=== PATIENT | male | born 1990 | race Hispanic/Latino ===

== ENCOUNTER 2017-10-10 01:51 | Inpatient (IN) | payer BC, MEDICAID ==
[2017-10-10 01:51] VITALS: BMI 24.3
--- NOTE | 2017-10-10 02:22 | ED PDOC ---
Arrival/HPI - General Time Seen by Provider: 10/10/17 01:51 Historian: Patient - History of Present Illness Narrative History of Present Illness (Text): 10/10/17 02:21 27 year old male, whose past medical history includes IVDA (Heroine/cocaine) and alcohol abuse, presents to the emergency department complaining of puncture wound to the right wrist. Patient states he sustained this wound from a nail. There is also some cellulites to the right arm. Patient denies any fever, chills , chest pain, shortness of breath, nausea, vomiting, diarrhea, urinary symptoms , back pain, neck pain, headache, dizziness, suicidal/homicidal Ideation, or any other complaints. PMD: None Symptom Onset: Sudden Symptom Course: Unchanged Activities at Onset: Light Context: Home Past Medical History - Provider Review Nursing Documentation Reviewed: Yes - Cardiac Hx Cardiac Disorders: No Hx Hypertension: No - Pulmonary Hx Tuberculosis: No - Neurological HX Cerebrovascular Accident: No - Hematological/Oncological Hx Cancer: No - Integumentary Hx Dermatological Disorder: Yes (TATTOOS,LEFT ANTECUB AREA WITH OLD TRACK CARDOZA.EDEMA.) - Musculoskeletal/Rheumatological Hx Falls: No - Genitourinary/Gynecological Hx Sexually Transmitted Diseases: No - Psychiatric Hx Substance Use: Yes - Anesthesia Hx Anesthesia: No Hx Anesthesia Reactions: No Hx Malignant Hyperthermia: No - Suicidal Assessment Feels Threatened In Home Enviroment: No Family/Social History - Physician Review Nursing Documentation Reviewed: Yes Family/Social History: No Known Family HX Smoking Status: Current Some Days Smoker Hx Alcohol Use: Yes Hx Substance Use: Yes Allergies/Home Meds Allergies/Adverse Reactions: Allergies No Known Allergies Allergy (Verified 07/15/16 12:17) Home Medications: Home Meds Medication Instructions Recorded Confirmed No Known Home Med [No Known Home 12/05/14 10/10/17 Med] Review of Systems - Physician Review All systems were reviewed & negative as marked: Yes - Review of Systems Constitutional: absent: Fevers, Other (Chills) Respiratory: absent: SOB Cardiovascular: absent: Chest Pain Gastrointestinal: absent: Diarrhea, Nausea, Vomiting Genitourinary Male: absent: Dysuria, Frequency, Hematuria Musculoskeletal: absent: Back Pain, Neck Pain Skin: Cellulitis, Other (puncture wound to the right arm ) Neurological: absent: Headache, Dizziness Physical Exam Vital Signs Reviewed: Yes Vital Signs Temp Pulse Resp BP Pulse Ox 10/10/17 05:04 100.0 F H 82 20 107/60 10/10/17 04:42 100.0 F H 10/10/17 03:46 102 F H 88 20 98 10/10/17 02:20 101.8 F H 98 H 18 97 Temperature: Febrile Blood Pressure: Normal Pulse: Regular Respiratory Rate: Normal Appearance: Positive for: Well-Appearing, Non-Toxic, Comfortable Pain Distress: None Mental Status: Positive for: Alert and Oriented X 3 - Systems Exam Head: Present: Atraumatic, Normocephalic Pupils: Present: PERRL Extroacular Muscles: Present: EOMI Conjunctiva: Present: Normal Mouth: Present: Moist Mucous Membranes Neck: Present: Normal Range of Motion Respiratory/Chest: Present: Clear to Auscultation, Good Air Exchange. No: Respiratory Distress, Accessory Muscle Use Cardiovascular: Present: Regular Rate and Rhythm, Normal S1, S2. No: Murmurs Abdomen: No: Tenderness, Distention, Peritoneal Signs Back: Present: Normal Inspection Upper Extremity: Present: Erythema, Other (Track cardoza to the arms bilaterally. Puncture wound to the right lower aspect of thr wrist. Cellulitis to the right arm (More on the wrist than the hand)). No: Cyanosis, Edema Lower Extremity: Present: Normal Inspection. No: Edema Neurological: Present: GCS=15, CN II-XII Intact, Speech Normal Skin: Present: Warm, Dry, Normal Color. No: Rashes Psychiatric: Present: Alert, Oriented x 3, Normal Insight, Normal Concentration Medical Decision Making ED Course and Treatment: 10/10/17 02:22 Impression: 27 year old male presents complaining of a puncture wound to the right lower aspect of the wrist and cellulites to the right arm. Patient has a past medical history of substance abuse. Plan: -- Labs -- Tylenol, Vancomycin, Zosyn -- Blood Culture -- Wrist, right 3 view x-ray -- Reassess and disposition Prior Visits: Notes and results from previous visits were reviewed. Patient was last seen in the emergency department on 07/15/16 presents found lying outside tonight. Patient was admitted. Progress Notes: 10/10/17 03:12 Case discussed with the medical affairs director and Dr. Rubi Drummond who is aware and agrees with the plan. Accepts patient to hospitalist service. 10/10/17 03:30 Wrist Right 3 View X-ray Impression: As read by me, no foreign body. - Lab Interpretations I have reviewed the lab results: Yes - RAD Interpretation Radiology Orders: 10/10/17 02:25 WRIST, RIGHT 3 VIEWS [RAD] Stat - Medication Orders Current Medication Orders: Acetaminophen (Tylenol 325mg Tab) 650 mg PO Q4H PRN PRN Reason: Fever >100.4 F Sodium Chloride (Sodium Chloride 0.9%) 1,000 mls @ 150 mls/hr IV .Q6H40M OLEKSANDR Vancomycin HCl (Vancomycin 1gm) 1 gm in 250 mls @ 167 mls/hr IVPB Q12H OLEKSANDR PRN Reason: Protocol Piperacillin Sod/Tazobactam Sod (Zosyn 3.375 In Ns 100ml) 100 mls @ 200 mls/hr IVPB Q6H OLEKSANDR PRN Reason: Protocol Stop: 10/10/17 15:29 Ibuprofen (Motrin Tab) 400 mg PO Q6H PRN PRN Reason: Pain, Mild (1-3) Discontinued Medications Acetaminophen (Tylenol 325mg Tab) 650 mg PO STAT STA Stop: 10/10/17 02:26 Last Admin: 10/10/17 03:02 Dose: 650 mg Vancomycin HCl (Vancomycin 1gm) 1 gm in 250 mls @ 167 mls/hr IVPB STAT STA PRN Reason: Protocol Stop: 10/10/17 03:55 Last Admin: 10/10/17 03:02 Dose: 167 mls/hr eMAR Start Stop Document 10/10/17 03:02 (Rec: 10/10/17 03:03 [id number] Intravenous Solution Start Date 10/10/17 Start Time 03:03 Piperacillin Sod/Tazobactam Sod (Zosyn 3.375 In Ns 100ml) 100 mls @ 200 mls/hr IVPB STAT STA PRN Reason: Protocol Stop: 10/10/17 02:55 Last Admin: 10/10/17 03:03 Dose: 200 mls/hr eMAR Start Stop Document 10/10/17 03:03 (Rec: 10/10/17 03:03 [id number] Intravenous Solution Start Date 10/10/17 Start Time 03:03 Sodium Chloride (Sodium Chloride 0.9%) 1,000 mls @ 999 mls/hr IV .Q1H1M STA Stop: 10/10/17 05:50 Last Admin: 10/10/17 06:03 Dose: 999 mls/hr eMAR Start Stop Document 10/10/17 06:03 MV (Rec: 10/10/17 06:03 MV [id number]) Intravenous Solution Start Date 10/10/17 Start Time 06:03 End Date 10/10/17 Tetanus/Reduced Diphtheria/Acell Pertussis (Boostrix Vaccine Inj) 0.5 ml IM .ONCE ONE Stop: 10/10/17 04:21 Last Admin: 10/10/17 04:27 Dose: 0.5 ml MAR Immunization Data Document 10/10/17 04:27 (Rec: 10/10/17 04:27 [facility]-[id number]) Immunization Data Vaccine Information Sheet Given Yes Vaccine Information Sheet Given Date 10/10/17 Immunization Registry Document 10/10/17 04:27 (Rec: 10/10/17 04:27 [facility]-[id number]) Immunization Registry Consent Date 10/10/17 - Scribe Statement The provider has reviewed the documentation as recorded by the Niels Pierce Provider Scribe Attestation: All medical record entries made by the Niels were at my direction and personally dictated by me. I have reviewed the chart and agree that the record accurately reflects my personal performance of the history, physical exam, medical decision making, and the department course for this patient. I have also personally directed, reviewed, and agree with the discharge instructions and disposition. Disposition/Present on Arrival - Present on Arrival Any Indicators Present on Arrival: No History of DVT/PE: No History of Uncontrolled Diabetes: No Urinary Catheter: No History Surgical Site Infection Following: None - Disposition Have Diagnosis and Disposition been Completed?: Yes Diagnosis: Drug abuse, Cellulitis of forearm, right Disposition: HOSPITALIZED Disposition Time: 02:00 Condition: FAIR
[2017-10-10] MEDS ORDERED: Piperacillin/Tazobact 3.375 gm 100 ML IVPB STA (02:26)
[2017-10-10] MEDS ORDERED: Vancomycin 1gm in NS 250ml 1 GM/250 ML BAG IVPB STA (02:26)
[2017-10-10 03:11] LABS: BASO # 0.03 K/mm3 (0.0-2.0); BASO % 0.1 % (0.0-3.0); GRAN # 19.83 (1.4-6.5); GRAN % 83.9 % (50.0-68.0); HEMOGLOBIN 13.5 g/dL (14.0-18.0); LYMPH # 2.5 (1.2-3.4); LYMPH % 10.5 % (22.0-35.0); MEAN CORPUSCULAR HEMOGLOBIN 30.3 pg (25.0-35.0); MONO # 1.3 (0.1-0.6); MONO % 5.5 % (1.0-6.0); RBC 4.46 10^6/uL (3.5-6.1); RED CELL DISTRIBUTION WIDTH 12.8 % (11.5-14.5); WHITE BLOOD COUNT 23.7 10^3/ul (4.5-11.0)
[2017-10-10 03:18] LABS: ALB/GLOB RATIO 1.2 (1.1-1.8); ALBUMIN 4.1 g/dL (3.0-4.8); ALT/SGPT 86 U/L (7-56); AST/SGOT 102 U/L (17-59); BLOOD UREA NITROGEN 18 mg/dL (7-21); CALCIUM 8.3 mg/dL (8.4-10.5); GFR AFRICAN-AMERICAN > 60; GFR NON-AFRICAN AMERICAN > 60
[2017-10-10] MEDS ORDERED: TDAP Vaccine 0.5 mL Syr IM ONE (04:20)
[2017-10-10] MEDS ORDERED: Sodium Chloride 0.9% 1,000 ML IV STA (04:50)
--- NOTE | 2017-10-10 05:56 | CP.PCM.HP ---
History of Present Illness - History of Present Illness History of Present Illness: Internal Medicine H&P for Dr. Maria E Drummond CC: Right wrist infection HPI: 26 yo M with PMH of IVDA (heroine/cocaine), ETOH abuse, and HVC (known, untreated) presents to the ER with his father complaining of right wrist infection. He says that earlier this morning, he was climbing a fence, and a nail went through his wrist and has since gotten progressively redder, more swollen, and more painful. He admits to IVDA use, mostly in his left antecubital fossa, most recently used 2 hours prior to presentation. He denies recent alcohol use. He admits to subjective fevers. He denies chest pain, cough , nausea, vomiting, diarrhea, abdominal pain, shortness of breath, headaches, vision changes, palpitations, focal weakness/numbness. Father is at bedside as well. ROS: 12 point ROS was obtained and was negative except as above. PMH: HCV, known, untreated PSH: Denies FMH: Denies Social: Patient admits to IVDA (cocaine and heroine), patient denies alcohol abuse, patient smokes 1 pack a day of tobacco. 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 Allergy: NKDA Home meds: none Present on Admission - Present on Admission Any Indicators Present on Admission: No Past Patient History - Past Medical History & Family History Past Medical History?: No - Past Social History Smoking Status: Light Smoker < 10 Cigarettes Daily - CARDIAC Hx Cardiac Disorders: No - PULMONARY Hx Respiratory Disorders: No - NEUROLOGICAL Hx Neurological Disorder: No - HEENT Hx HEENT Problems: No - RENAL Hx Chronic Kidney Disease: No - ENDOCRINE/METABOLIC Hx Endocrine Disorders: No - HEMATOLOGICAL/ONCOLOGICAL Hx Blood Disorders: No - INTEGUMENTARY Hx Dermatological Problems: No - MUSCULOSKELETAL/RHEUMATOLOGICAL Hx Musculoskeletal Disorders: No Hx Falls: No - GASTROINTESTINAL Hx Gastrointestinal Disorders: No - GENITOURINARY/GYNECOLOGICAL Hx Genitourinary Disorders: No - PSYCHIATRIC Hx Psychophysiologic Disorder: Yes (SMOKES 1 PPD,IVDU HEROINE,COCAINE USE. ETOH ABUSE,SEVERAL REHAB-RENNY) - SURGICAL HISTORY Hx Surgeries: No - ANESTHESIA Hx Anesthesia: No Hx Anesthesia Reactions: No Hx Malignant Hyperthermia: No Meds Allergies/Adverse Reactions: Allergies Allergy/AdvReac Type Severity Reaction Status Date / Time No Known Allergies Allergy Verified 07/15/16 12:17 Physical Exam - Constitutional Appears: Non-toxic, No Acute Distress - Head Exam Head Exam: ATRAUMATIC, NORMOCEPHALIC - Eye Exam Eye Exam: EOMI, Normal appearance, PERRL. absent: Conjunctival injection Pupil Exam: absent: Miosis, Mydriatic - ENT Exam ENT Exam: Mucous Membranes Moist, Normal Oropharynx - Neck Exam Neck exam: Positive for: Normal Inspection. Negative for: Meningismus - Respiratory Exam Respiratory Exam: Clear to Auscultation Bilateral, NORMAL BREATHING PATTERN. absent: Rales, Rhonchi, Wheezes - Cardiovascular Exam Cardiovascular Exam: RRR, +S1, +S2. absent: Diastolic murmur, Gallop, +S4, Systolic Murmur - GI/Abdominal Exam GI & Abdominal Exam: Soft. absent: Distended, Firm, Guarding, Rigid, Tenderness - Extremities Exam Extremities exam: Negative for: calf tenderness, pedal edema Additional comments: Right wrist with erythema and edema, and 2mm abrasion near palmar-radial aspect. Erythema tracks along medial and ventral aspect of arm to axilla. No axillary lymphadenopathy. - Neurological Exam Neurological exam: Alert, CN II-XII Intact, Oriented x3 Additional comments: 5/5 strength in all four extremitites Normal sensation throughout - Psychiatric Exam Psychiatric exam: Normal Affect, Normal Mood - Skin Skin Exam: Dry, Intact, Normal Color Additional comments: See extremities exam Results - Vital Signs Recent Vital Signs: Last Vital Signs Temp 100.0 F H 10/10/17 05:04 Pulse 82 10/10/17 05:04 Resp 20 10/10/17 05:04 BP 107/60 10/10/17 05:04 Pulse Ox 98 10/10/17 03:46 - Labs Result Diagrams: 10/10/17 05:30 10/10/17 05:30 Labs: Laboratory Results - last 24 hr 10/10/17 10/10/17 02:45 02:45 WBC 23.7 H D RBC 4.46 Hgb 13.5 L Hct 39.7 L MCV 89.0 MCH 30.3 MCHC 34.0 RDW 12.8 Plt Count 256 MPV 9.0 Gran % 83.9 H Lymph % (Auto) 10.5 L [place] % (Auto) 5.5 Eos % (Auto) 0.0 L Baso % (Auto) 0.1 Gran # 19.83 H Lymph # (Auto) 2.5 [place] # (Auto) 1.3 H Eos # (Auto) 0.0 Baso # (Auto) 0.03 Sodium 138 Potassium 4.3 Chloride 98 Carbon Dioxide 28 Anion Gap 16 BUN 18 Creatinine 1.1 Est GFR ( Amer) > 60 Est GFR (Non-Af Amer) > 60 Random Glucose 92 Calcium 8.3 L Total Bilirubin 0.7 AST 102 H ALT 86 H Alkaline Phosphatase 76 Total Protein 7.4 Albumin 4.1 Globulin 3.3 Albumin/Globulin Ratio 1.2 Assessment & Plan - Assessment and Plan (Free Text) Assessment: 27 yo M with history of HCV (known, untreated), IVDA, prior ETOH abuse presents with cellulitis of right arm Cellulitis: -- Right hand XR shows no foreign body -- Ordered Tdap booster -- Continue vanc and zosyn -- Start IVF -- Blood cultures drawn; f/u results -- Ordered UA, UCx, CXR, and procal for further septic workup to r/o other infectious etiologies -- Patient febrile with leukocytosis; continue to monitor vitals and CBC -- Tylenol PRN for fever -- Motrin PRN for pain -- Requested ID consult; appreciate recs History of IVDA and ETOH abuse: -- Monitor for signs of withdrawal DVT Ppx: SCDs Patient seen, discussed, and reviewed with Dr. Maria E Drummond
--- NOTE | 2017-10-10 06:19 | CP.PCM.CON ---
<Сергей Yun - Last Filed: 10/10/17 06:19> Past Patient History - Past Medical History & Family History Past Medical History?: No - Past Social History Smoking Status: Light Smoker < 10 Cigarettes Daily - CARDIAC Hx Cardiac Disorders: No - PULMONARY Hx Respiratory Disorders: No - NEUROLOGICAL Hx Neurological Disorder: No - HEENT Hx HEENT Problems: No - RENAL Hx Chronic Kidney Disease: No - ENDOCRINE/METABOLIC Hx Endocrine Disorders: No - HEMATOLOGICAL/ONCOLOGICAL Hx Blood Disorders: No - INTEGUMENTARY Hx Dermatological Problems: No - MUSCULOSKELETAL/RHEUMATOLOGICAL Hx Musculoskeletal Disorders: No Hx Falls: No - GASTROINTESTINAL Hx Gastrointestinal Disorders: No - GENITOURINARY/GYNECOLOGICAL Hx Genitourinary Disorders: No - PSYCHIATRIC Hx Psychophysiologic Disorder: Yes (SMOKES 1 PPD,IVDU HEROINE,COCAINE USE. ETOH ABUSE,SEVERAL REHAB-RENNY) - SURGICAL HISTORY Hx Surgeries: No - ANESTHESIA Hx Anesthesia: No Hx Anesthesia Reactions: No Hx Malignant Hyperthermia: No Meds Allergies/Adverse Reactions: Allergies Allergy/AdvReac Type Severity Reaction Status Date / Time No Known Allergies Allergy Verified 07/15/16 12:17 - Medications Medications: Current Medications Acetaminophen (Tylenol 325mg Tab) 650 mg PO Q4H PRN PRN Reason: Fever >100.4 F Sodium Chloride (Sodium Chloride 0.9%) 1,000 mls @ 150 mls/hr IV .Q6H40M OLEKSANDR Vancomycin HCl (Vancomycin 1gm) 1 gm in 250 mls @ 167 mls/hr IVPB Q12H OLEKSANDR PRN Reason: Protocol Piperacillin Sod/Tazobactam Sod (Zosyn 3.375 In Ns 100ml) 100 mls @ 200 mls/hr IVPB Q6H OLEKSANDR PRN Reason: Protocol Stop: 10/10/17 15:29 Ibuprofen (Motrin Tab) 400 mg PO Q6H PRN PRN Reason: Pain, Mild (1-3) Results - Vital Signs Recent Vital Signs: Last Vital Signs Temp 100.0 F H 10/10/17 05:04 Pulse 82 10/10/17 05:04 Resp 20 10/10/17 05:04 BP 107/60 10/10/17 05:04 Pulse Ox 98 10/10/17 03:46 - Labs Result Diagrams: 10/10/17 02:45 10/10/17 02:45 Labs: Laboratory Results - last 24 hr 10/10/17 10/10/17 02:45 02:45 WBC 23.7 H D RBC 4.46 Hgb 13.5 L Hct 39.7 L MCV 89.0 MCH 30.3 MCHC 34.0 RDW 12.8 Plt Count 256 MPV 9.0 Gran % 83.9 H Lymph % (Auto) 10.5 L [place] % (Auto) 5.5 Eos % (Auto) 0.0 L Baso % (Auto) 0.1 Gran # 19.83 H Lymph # (Auto) 2.5 [place] # (Auto) 1.3 H Eos # (Auto) 0.0 Baso # (Auto) 0.03 Sodium 138 Potassium 4.3 Chloride 98 Carbon Dioxide 28 Anion Gap 16 BUN 18 Creatinine 1.1 Est GFR ( Amer) > 60 Est GFR (Non-Af Amer) > 60 Random Glucose 92 Calcium 8.3 L Total Bilirubin 0.7 AST 102 H ALT 86 H Alkaline Phosphatase 76 Total Protein 7.4 Albumin 4.1 Globulin 3.3 Albumin/Globulin Ratio 1.2 <Clara Christianson - Last Filed: 10/10/17 07:28> Meds - Medications Medications: Current Medications Acetaminophen (Tylenol 325mg Tab) 650 mg PO Q4H PRN PRN Reason: Fever >100.4 F Sodium Chloride (Sodium Chloride 0.9%) 1,000 mls @ 150 mls/hr IV .Q6H40M OLEKSANDR Vancomycin HCl (Vancomycin 1gm) 1 gm in 250 mls @ 167 mls/hr IVPB Q12H OLEKSANDR PRN Reason: Protocol Piperacillin Sod/Tazobactam Sod (Zosyn 3.375 In Ns 100ml) 100 mls @ 200 mls/hr IVPB Q6H OLEKSANDR PRN Reason: Protocol Stop: 10/10/17 15:29 Ibuprofen (Motrin Tab) 400 mg PO Q6H PRN PRN Reason: Pain, Mild (1-3) Results - Vital Signs Recent Vital Signs: Last Vital Signs Temp 100.0 F H 10/10/17 05:04 Pulse 82 10/10/17 05:04 Resp 20 10/10/17 05:04 BP 107/60 10/10/17 05:04 Pulse Ox 98 10/10/17 03:46 - Labs Result Diagrams: 10/10/17 02:45 10/10/17 05:30 Labs: Laboratory Results - last 24 hr 10/10/17 10/10/17 10/10/17 02:45 02:45 05:30 WBC 23.7 H D RBC 4.46 Hgb 13.5 L Hct 39.7 L MCV 89.0 MCH 30.3 MCHC 34.0 RDW 12.8 Plt Count 256 MPV 9.0 Gran % 83.9 H Lymph % (Auto) 10.5 L [place] % (Auto) 5.5 Eos % (Auto) 0.0 L Baso % (Auto) 0.1 Gran # 19.83 H Lymph # (Auto) 2.5 [place] # (Auto) 1.3 H Eos # (Auto) 0.0 Baso # (Auto) 0.03 Sodium 138 138 Potassium 4.3 3.6 Chloride 98 100 Carbon Dioxide 28 27 Anion Gap 16 14 BUN 18 17 Creatinine 1.1 1.1 Est GFR ( Amer) > 60 > 60 Est GFR (Non-Af Amer) > 60 > 60 Random Glucose 92 206 H Calcium 8.3 L 8.1 L Total Bilirubin 0.7 0.7 AST 102 H 72 H D ALT 86 H 71 H Alkaline Phosphatase 76 60 Total Protein 7.4 6.0 Albumin 4.1 3.2 Globulin 3.3 2.8 Albumin/Globulin Ratio 1.2 1.1
[2017-10-10 06:42] LABS: BASO # 0.02 K/mm3 (0.0-2.0); BASO % 0.1 % (0.0-3.0); GRAN # 16.37 (1.4-6.5); GRAN % 78.9 % (50.0-68.0); HEMOGLOBIN 12.3 g/dL (14.0-18.0); LYMPH # 2.6 (1.2-3.4); LYMPH % 12.4 % (22.0-35.0); MEAN CELL VOLUME 88.7 fl (80.0-105.0); MEAN CORPUSCULAR HEMOGLOBIN 29.6 pg (25.0-35.0); MEAN CORPUSCULAR HGB CONC 33.4 g/dl (31.0-37.0); MEAN PLATELET VOLUME 9.2 fl (7.0-11.0); MONO # 1.8 (0.1-0.6); MONO % 8.6 % (1.0-6.0); RBC 4.15 10^6/uL (3.5-6.1); RED CELL DISTRIBUTION WIDTH 12.9 % (11.5-14.5); WHITE BLOOD COUNT 20.8 10^3/ul (4.5-11.0)
[2017-10-10 06:53] LABS: ALB/GLOB RATIO 1.1 (1.1-1.8); ALBUMIN 3.2 g/dL (3.0-4.8); ALT/SGPT 71 U/L (7-56); AST/SGOT 72 U/L (17-59); BLOOD UREA NITROGEN 17 mg/dL (7-21); CALCIUM 8.1 mg/dL (8.4-10.5); GFR AFRICAN-AMERICAN > 60; GFR NON-AFRICAN AMERICAN > 60
[2017-10-10] MEDS: Sodium Chloride 0.9% 1,000 ML IV SCH ×2 (07:13→16:24)
--- NOTE | 2017-10-10 08:49 | RAD ---
PROCEDURE: Right Wrist Radiographs. HISTORY: r/o fb COMPARISON: None. FINDINGS: BONES: Normal. No fracture. JOINTS: Normal. No dislocation. SOFT TISSUES: No visulaized radiopaque/visualized foreign body. OTHER FINDINGS: None. IMPRESSION: Normal right wrist radiographs.
[2017-10-10] MEDS ORDERED: Piperacillin/Tazobact 3.375 gm 100 ML IVPB SCH (09:00)
--- NOTE | 2017-10-10 09:29 | RAD ---
HISTORY: r/o infiltrate COMPARISON: No prior. FINDINGS: LUNGS: No active pulmonary disease. PLEURA: No significant pleural effusion identified, no pneumothorax apparent. CARDIOVASCULAR: Normal. OSSEOUS STRUCTURES: No significant abnormalities. VISUALIZED UPPER ABDOMEN: Normal. OTHER FINDINGS: None. IMPRESSION: No active disease.
--- NOTE | 2017-10-10 10:41 | CP.PCM.CON ---
<Сергей Yun - Last Filed: 10/10/17 10:29> History of Present Illness - History of Present Illness History of Present Illness: Surgery Consult note. Dr. Poon 27yo M with PMHx of IVDA, HepC here for evaluation of right wrist pain, swelling and redness. Patient admits to IV Heroin use in left antecubital fossa. Patient states that 2 days ago, he was climbing through a window when he scraped the volar aspect of his right wrist on a nail or broken glass. He states that he didn't think much of it at the time. However, over the next day and a half, the area has become more inflammed and progressively red with erythema worsening proximally up the right arm. He does report pain when he flexes or extends his wrist and makes a fist. He last reports IV heroin use 2 hours prior to arrival. He denies any IV heroin use at the right wrist. Denies any similar complaints in the past. Does report subjective fevers and chills that started yesterday. Denies any N/V/D. No Abd pain. No CP/SOB. No urinary complaints. PMHx: HepC, IVDA PSHx: Denies Family Hx: non-contributory Social Hx: Admits to IVDA (heroin), and cocaine use. Current 1/2 pack per day smoker. Denies ETOH use NKDA Review of Systems - Review of Systems All systems: reviewed and no additional remarkable complaints except - Constitutional Constitutional: Chills, Fever - Cardiovascular Cardiovascular: absent: Chest Pain, Diaphoresis, Dyspnea - Respiratory Respiratory: absent: Dyspnea - Gastrointestinal Gastrointestinal: absent: Abdominal Pain, Diarrhea, Nausea, Vomiting - Genitourinary Genitourinary: absent: Dysuria - Musculoskeletal Additional comments: right wrist pain, erythema - Integumentary Additional comments: right wrist erythema Past Patient History - Past Medical History & Family History Past Medical History?: No - Past Social History Smoking Status: Heavy Smoker > 10 Cigarettes Daily Alcohol: None Drugs: Cocaine, Opiates - CARDIAC Hx Cardiac Disorders: No - PULMONARY Hx Respiratory Disorders: No - NEUROLOGICAL Hx Neurological Disorder: No - HEENT Hx HEENT Problems: No - RENAL Hx Chronic Kidney Disease: No - ENDOCRINE/METABOLIC Hx Endocrine Disorders: No - HEMATOLOGICAL/ONCOLOGICAL Hx Blood Disorders: No - INTEGUMENTARY Hx Dermatological Problems: No - MUSCULOSKELETAL/RHEUMATOLOGICAL Hx Musculoskeletal Disorders: No Hx Falls: No - GASTROINTESTINAL Hx Gastrointestinal Disorders: No - GENITOURINARY/GYNECOLOGICAL Hx Genitourinary Disorders: No - PSYCHIATRIC Hx Psychophysiologic Disorder: Yes (SMOKES 1 PPD,IVDU HEROINE,COCAINE USE. ETOH ABUSE,SEVERAL REHAB-RENNY) - SURGICAL HISTORY Hx Surgeries: No - ANESTHESIA Hx Anesthesia: No Hx Anesthesia Reactions: No Hx Malignant Hyperthermia: No Meds Allergies/Adverse Reactions: Allergies Allergy/AdvReac Type Severity Reaction Status Date / Time No Known Allergies Allergy Verified 07/15/16 12:17 - Medications Medications: Current Medications Acetaminophen (Tylenol 325mg Tab) 650 mg PO Q4H PRN PRN Reason: Fever >100.4 F Sodium Chloride (Sodium Chloride 0.9%) 1,000 mls @ 150 mls/hr IV .Q6H40M [facility] Last Admin: 10/10/17 07:13 Dose: 150 mls/hr Vancomycin HCl (Vancomycin 1gm) 1 gm in 250 mls @ 167 mls/hr IVPB Q12H OLEKSANDR PRN Reason: Protocol Cefepime HCl (Maxipime 1gm) 1 gm in 100 mls @ 100 mls/hr IVPB Q8 OLEKSANDR PRN Reason: Protocol Stop: 10/19/17 14:01 Ibuprofen (Motrin Tab) 400 mg PO Q6H PRN PRN Reason: Pain, Mild (1-3) Physical Exam - Constitutional Appears: Non-toxic, No Acute Distress, Unkempt - Head Exam Head Exam: ATRAUMATIC, NORMAL INSPECTION, NORMOCEPHALIC - Eye Exam Eye Exam: EOMI, Normal appearance - ENT Exam ENT Exam: Mucous Membranes Moist - Respiratory Exam Respiratory Exam: NORMAL BREATHING PATTERN. absent: Accessory Muscle Use, Respiratory Distress - Cardiovascular Exam Cardiovascular Exam: RRR. absent: JVD - GI/Abdominal Exam GI & Abdominal Exam: Soft. absent: Distended, Firm, Guarding, Rebound, Tenderness - Extremities Exam Additional comments: right wrist puncture wound with small scab noted. surrounding erythema with streaking up to medial elbow. No fluctuance, no induration, no active drainage Able to flex and extend wrist with moderate discomfort. Able to make fist with moderate discomfort Sensory intact Pulses intact - Neurological Exam Neurological exam: Alert, Oriented x3 Results - Vital Signs Recent Vital Signs: Last Vital Signs Temp 99 F 10/10/17 07:38 Pulse 82 10/10/17 07:38 Resp 20 10/10/17 07:38 BP 107/60 10/10/17 07:38 Pulse Ox 95 10/10/17 07:38 - Labs Result Diagrams: 10/10/17 05:30 10/10/17 05:30 Labs: Laboratory Results - last 24 hr 10/10/17 10/10/17 10/10/17 02:45 02:45 05:30 WBC 23.7 H D 20.8 H RBC 4.46 4.15 Hgb 13.5 L 12.3 L Hct 39.7 L 36.8 L MCV 89.0 88.7 MCH 30.3 29.6 MCHC 34.0 33.4 RDW 12.8 12.9 Plt Count 256 232 MPV 9.0 9.2 Gran % 83.9 H 78.9 H Lymph % (Auto) 10.5 L 12.4 L Coleman % (Auto) 5.5 8.6 H Eos % (Auto) 0.0 L 0.0 L Baso % (Auto) 0.1 0.1 Gran # 19.83 H 16.37 H Lymph # (Auto) 2.5 2.6 Coleman # (Auto) 1.3 H 1.8 H Eos # (Auto) 0.0 0.0 Baso # (Auto) 0.03 0.02 Sodium 138 Potassium 4.3 Chloride 98 Carbon Dioxide 28 Anion Gap 16 BUN 18 Creatinine 1.1 Est GFR ( Amer) > 60 Est GFR (Non-Af Amer) > 60 Random Glucose 92 Calcium 8.3 L Total Bilirubin 0.7 AST 102 H ALT 86 H Alkaline Phosphatase 76 Total Protein 7.4 Albumin 4.1 Globulin 3.3 Albumin/Globulin Ratio 1.2 10/10/17 05:30 WBC RBC Hgb Hct MCV MCH MCHC RDW Plt Count MPV Gran % Lymph % (Auto) [place] % (Auto) Eos % (Auto) Baso % (Auto) Gran # Lymph # (Auto) [place] # (Auto) Eos # (Auto) Baso # (Auto) Sodium 138 Potassium 3.6 Chloride 100 Carbon Dioxide 27 Anion Gap 14 BUN 17 Creatinine 1.1 Est GFR ( Amer) > 60 Est GFR (Non-Af Amer) > 60 Random Glucose 206 H Calcium 8.1 L Total Bilirubin 0.7 AST 72 H D ALT 71 H Alkaline Phosphatase 60 Total Protein 6.0 Albumin 3.2 Globulin 2.8 Albumin/Globulin Ratio 1.1 Assessment & Plan - Assessment and Plan (Free Text) Assessment: 27yo M with right wrist cellulitis Plan: - Continue IV Abx as per ID - Pain management - f/u blood cultures - Recommend evaluation by hand specialist with all further recommendations - No general surgery intervention warranted Further recs as per Dr. Ayah Yun PGY1 surgery pager: [phone] <Nicolas Poon - Last Filed: 10/11/17 19:53> Meds - Medications Medications: Current Medications Acetaminophen (Tylenol 325mg Tab) 650 mg PO Q4H PRN PRN Reason: Fever >100.4 F Calcium Carbonate (Caltrate) 600 mg PO DAILY [facility] Last Admin: 10/11/17 10:23 Dose: 600 mg Heparin Sodium (Porcine) (Heparin) 5,000 units SC Q8 OLEKSANDR PRN Reason: Protocol Last Admin: 10/11/17 13:48 Dose: Not Given Vancomycin HCl (Vancomycin 1gm) 1 gm in 250 mls @ 167 mls/hr IVPB Q12H OLEKSANDR PRN Reason: Protocol Last Admin: 10/11/17 14:33 Dose: 167 mls/hr Cefepime HCl (Maxipime 1gm) 1 gm in 100 mls @ 100 mls/hr IVPB Q8 OLEKSANDR PRN Reason: Protocol Stop: 10/19/17 14:01 Last Admin: 10/11/17 13:47 Dose: 100 mls/hr Lactobacillus Acidophilus (Bacid Acidophilus) 1 cap PO BID [facility] Last Admin: 10/11/17 17:26 Dose: 1 cap Results - Vital Signs Recent Vital Signs: Last Vital Signs Temp 98.3 F 10/11/17 17:45 Pulse 58 L 10/11/17 17:45 Resp 18 10/11/17 17:45 BP 100/57 L 10/11/17 17:45 Pulse Ox 98 10/11/17 17:45 - Labs Result Diagrams: 10/11/17 06:00 10/11/17 06:00 Labs: Laboratory Results - last 24 hr 10/10/17 10/11/17 10/11/17 08:55 06:00 06:00 WBC 12.4 H D RBC 4.02 Hgb 11.8 L Hct 35.9 L MCV 89.3 MCH 29.4 MCHC 32.9 RDW 13.5 Plt Count 197 MPV 9.0 Gran % 66.3 Lymph % (Auto) 23.1 Coleman % (Auto) 9.2 H Eos % (Auto) 1.2 L Baso % (Auto) 0.2 Gran # 8.25 H Lymph # (Auto) 2.9 Coleman # (Auto) 1.1 H Eos # (Auto) 0.2 Baso # (Auto) 0.02 Sodium 139 Potassium 3.9 Chloride 107 Carbon Dioxide 24 Anion Gap 12 BUN 9 Creatinine 0.7 L Est GFR ( Amer) > 60 Est GFR (Non-Af Amer) > 60 Random Glucose 118 H Calcium 7.5 L Phosphorus 2.3 L Magnesium 1.9 Total Bilirubin 0.1 L AST 37 ALT 52 Alkaline Phosphatase 66 Total Protein 5.8 Albumin 2.8 L Globulin 3.0 Albumin/Globulin Ratio 0.9 L Hepatitis A IgM Ab Negative Hep Bs Antigen Negative Hep B Core IgM Ab Negative Hepatitis C Antibody Reactive Attending/Attestation - Attestation I have personally seen and examined this patient.: Yes I have fully participated in the care of the patient.: Yes I have reviewed all pertinent clinical information: Yes Notes (Text): Pt was seen and examined at bedside Agree with above note and assessment Pt with active substance abuse and right wrist cellulitis No clinical evidence of abscess Labs and radiology reviewed Ass: Right wrist cellulitis with active substance abuse Plan: Hand elevation IV antibiotics Hand surgery consult No acute general surgery consult required Plan d.w pt in detail Risk and benefit explained in detail.
[2017-10-10 13:21] LABS: URINE APPEARANCE CLEAR (CLEAR); URINE BILIRUBIN NEGATIVE (NEGATIVE); URINE BLOOD TRACE-INTACT (NEGATIVE); URINE COLOR YELLOW (YELLOW); URINE GLUCOSE (UA) NEGATIVE (NEGATIVE); URINE LEUKOCYTE ESTERASE NEGATIVE Leu/uL (NEGATIVE); URINE PROTEIN NEGATIVE mg/dL (<30 mg/dL); URINE UROBILINOGEN 0.2 E.U./dL (<1 E.U./dL)
[2017-10-10 13:31] LABS: URINE BACTERIA FEW (NEG); URINE WBC 0 - 2 /hpf (0-6)
[2017-10-10] MEDS: Cefepime 1gm in NS 100ml 1 GM/100 ML BAG IVPB SCH ×2 (14:03→21:56)
[2017-10-10] MEDS: Vancomycin 1gm in NS 250ml 1 GM/250 ML BAG IVPB SCH (14:03)
--- NOTE | 2017-10-10 15:57 | CON ---
DATE: 10/10/2017 LOCATION: The patient is seen in room 365 bed 1. CHIEF COMPLAINT: Fever and right arm infection. HISTORY OF PRESENT ILLNESS: This is a 27-year-old male known to me from previous admission, who is an active intravenous drug abuser. She has history of acute kidney injury in the past, polysubstance abuse, who is now admitted with fever and infected arm. He also has a known hepatitis C, did not pursue care for hepatitis C, was admitted through the emergency room. In the emergency room, the patient was seen by Dr. Wicho Farris, who states that the patient is an active intravenous drug abuser, heroin and cocaine, alcohol abuse, admitted with complaining of pain of right arm, right wrist pain and the patient states he has a nail injury to the arm and this morning, he tells me that he was shooting intravenous drugs and he was found have a temperature of 102 in the emergency room and admitted for further care. REVIEW OF SYSTEMS: Reveals fevers and chills and no chest pain or abdominal pain, diarrhea, constipation. No headaches. No blurred vision. No neck pain. PAST MEDICAL HISTORY: Significant for hepatitis C, acute kidney injury, polysubstance abuse, active intravenous drug abuser and heroin and cocaine, alcohol user. PAST SURGICAL HISTORY: The patient denies any past surgical history. SOCIAL HISTORY: He is a long time tobacco user in addition to alcohol and heroin and polysubstance. ALLERGIES: HE HAS NO KNOWN ALLERGIES. PHYSICAL EXAMINATION: VITAL SIGNS: On exam, temperature is 102 and heart rate was 98, respiratory rate of 20 and blood pressure is 107/60. HEENT: Examination of HEENT is unremarkable. NECK: Supple. LUNGS: Have decreased breath sounds. HEART: Normal S1, S2. ABDOMEN: Soft, nontender. EXTREMITIES: Examination of the arm, he has erythema streaking up his right arm all the way to the axillas and lymph node and right axilla. NEUROLOGIC: He was awake and alert. LABORATORY DATA: Laboratory examination reveals the patient's white count to be 23, 000, hemoglobin of 13, platelets of 256. Chemistries reveals BUN of 18, creatinine of 1.1 with a GFR greater than 60. LFTs are elevated and imaging reveals the patient had a chest x-ray. There is no report available and the patient also had a wrist x-ray which reveals normal x-ray of the wrist. Review of the laboratories reveals the patient had an HIV test which was negative on 07/15/2016. ASSESSMENT AND PLAN: A 27-year-old male, hepatitis C positive, history of acute kidney injury, history of polysubstance abuse, active intravenous drug abuser, alcohol user, tobacco user, heroin and cocaine user, who was admitted now with sepsis with a right arm cellulitis, must rule out endocarditis. We will treat the patient with vancomycin and cefepime and pending blood culture results. Recommend an human immunodeficiency virus test and the patient is currently on vancomycin 1 g every 12 hours. We will discontinue the Zosyn and use Maxipime. An human immunodeficiency virus test has been ordered. Blood cultures have been ordered. Drug rehabilitation is recommended and we will follow with you pending initial workup results. Shukri Smiley MD
[2017-10-11] MEDS: Sodium Chloride 0.9% 1,000 ML IV SCH (01:00)
[2017-10-11] MEDS: Vancomycin 1gm in NS 250ml 1 GM/250 ML BAG IVPB SCH ×2 (02:25→14:33)
[2017-10-11] MEDS: Cefepime 1gm in NS 100ml 1 GM/100 ML BAG IVPB SCH ×3 (06:13→21:29)
[2017-10-11 06:37] LABS: BASO # 0.02 K/mm3 (0.0-2.0); BASO % 0.2 % (0.0-3.0); EOS # 0.2 (0.0-0.7); EOS % 1.2 % (1.5-5.0); GRAN # 8.25 (1.4-6.5); GRAN % 66.3 % (50.0-68.0); HEMOGLOBIN 11.8 g/dL (14.0-18.0); LYMPH # 2.9 (1.2-3.4); LYMPH % 23.1 % (22.0-35.0); MEAN CELL VOLUME 89.3 fl (80.0-105.0); MEAN CORPUSCULAR HEMOGLOBIN 29.4 pg (25.0-35.0); MEAN CORPUSCULAR HGB CONC 32.9 g/dl (31.0-37.0); MONO # 1.1 (0.1-0.6); MONO % 9.2 % (1.0-6.0); RBC 4.02 10^6/uL (3.5-6.1); RED CELL DISTRIBUTION WIDTH 13.5 % (11.5-14.5); WHITE BLOOD COUNT 12.4 10^3/ul (4.5-11.0)
[2017-10-11 07:44] LABS: ALB/GLOB RATIO 0.9 (1.1-1.8); ALBUMIN 2.8 g/dL (3.0-4.8); ALT/SGPT 52 U/L (7-56); AST/SGOT 37 U/L (17-59); BLOOD UREA NITROGEN 9 mg/dL (7-21); CALCIUM 7.5 mg/dL (8.4-10.5); GFR AFRICAN-AMERICAN > 60; GFR NON-AFRICAN AMERICAN > 60
[2017-10-11 07:52] LABS: HEPATITIS B SURFACE AG Negative (NEGATIVE)
[2017-10-11 07:57] LABS: HEPATITIS A IGM NEGATIVE (NEGATIVE); HEPATITIS B CORE AB NEGATIVE (NEGATIVE)
[2017-10-11] MEDS ORDERED: Sodium Phosphate 15 MMOLE in Dextrose 5% In Water 250 ML IVPB ONE (09:09)
[2017-10-11 09:20] LABS: HEPATITIS C ANTIBODY REACTIVE (NEGATIVE)
--- NOTE | 2017-10-11 11:17 | CP.PCM.CON ---
Past Patient History - Past Medical History & Family History Past Medical History?: No - Past Social History Smoking Status: Heavy Smoker > 10 Cigarettes Daily Alcohol: None Drugs: Cocaine, Opiates - CARDIAC Hx Cardiac Disorders: No - PULMONARY Hx Respiratory Disorders: No - NEUROLOGICAL Hx Neurological Disorder: No - HEENT Hx HEENT Problems: No - RENAL Hx Chronic Kidney Disease: No - ENDOCRINE/METABOLIC Hx Endocrine Disorders: No - HEMATOLOGICAL/ONCOLOGICAL Hx Blood Disorders: No - INTEGUMENTARY Hx Dermatological Problems: No - MUSCULOSKELETAL/RHEUMATOLOGICAL Hx Musculoskeletal Disorders: No Hx Falls: No - GASTROINTESTINAL Hx Gastrointestinal Disorders: No - GENITOURINARY/GYNECOLOGICAL Hx Genitourinary Disorders: No - PSYCHIATRIC Hx Psychophysiologic Disorder: Yes (SMOKES 1 PPD,IVDU HEROINE,COCAINE USE. ETOH ABUSE,SEVERAL REHAB-RENNY) - SURGICAL HISTORY Hx Surgeries: No - ANESTHESIA Hx Anesthesia: No Hx Anesthesia Reactions: No Hx Malignant Hyperthermia: No Meds Allergies/Adverse Reactions: Allergies Allergy/AdvReac Type Severity Reaction Status Date / Time No Known Allergies Allergy Verified 07/15/16 12:17 - Medications Medications: Current Medications Acetaminophen (Tylenol 325mg Tab) 650 mg PO Q4H PRN PRN Reason: Fever >100.4 F Calcium Carbonate (Caltrate) 600 mg PO DAILY [facility] Last Admin: 10/11/17 10:23 Dose: 600 mg Vancomycin HCl (Vancomycin 1gm) 1 gm in 250 mls @ 167 mls/hr IVPB Q12H OLEKSANDR PRN Reason: Protocol Last Admin: 10/11/17 02:25 Dose: 167 mls/hr Cefepime HCl (Maxipime 1gm) 1 gm in 100 mls @ 100 mls/hr IVPB Q8 OLEKSANDR PRN Reason: Protocol Stop: 10/19/17 14:01 Last Admin: 10/11/17 06:13 Dose: 100 mls/hr Sodium Phosphate 15 mmole/ (Dextrose) 255 mls @ 42.5 mls/hr IVPB ONCE ONE Stop: 10/11/17 15:08 Last Admin: 10/11/17 10:22 Dose: 42.5 mls/hr Results - Vital Signs Recent Vital Signs: Last Vital Signs Temp 98.5 F 10/11/17 07:58 Pulse 69 10/11/17 07:58 Resp 19 10/11/17 07:58 BP 112/70 10/11/17 07:58 Pulse Ox 99 10/11/17 07:58 - Labs Result Diagrams: 10/11/17 06:00 10/11/17 06:00 Labs: Laboratory Results - last 24 hr 10/10/17 10/10/17 10/10/17 05:30 08:55 13:00 WBC RBC Hgb Hct MCV MCH MCHC RDW Plt Count MPV Gran % Lymph % (Auto) [place] % (Auto) Eos % (Auto) Baso % (Auto) Gran # Lymph # (Auto) [place] # (Auto) Eos # (Auto) Baso # (Auto) Sodium Potassium Chloride Carbon Dioxide Anion Gap BUN Creatinine Est GFR ( Amer) Est GFR (Non-Af Amer) Random Glucose Calcium Phosphorus Magnesium Total Bilirubin AST ALT Alkaline Phosphatase Total Protein Albumin Globulin Albumin/Globulin Ratio Procalcitonin 2.25 H Urine Color Yellow Urine Appearance Clear Urine pH 6.0 Ur Specific [place] 1.010 Urine Protein Negative Urine Glucose (UA) Negative Urine Ketones Negative Urine Blood Trace-intact H Urine Nitrate Negative Urine Bilirubin Negative Urine Urobilinogen 0.2 Ur Leukocyte Esterase Negative Urine RBC 1 - 3 Urine WBC 0 - 2 Ur Epithelial Cells None Urine Bacteria Few Hepatitis A IgM Ab Negative Hep Bs Antigen Negative Hep B Core IgM Ab Negative Hepatitis C Antibody Reactive 10/11/17 10/11/17 06:00 06:00 WBC 12.4 H D RBC 4.02 Hgb 11.8 L Hct 35.9 L MCV 89.3 MCH 29.4 MCHC 32.9 RDW 13.5 Plt Count 197 MPV 9.0 Gran % 66.3 Lymph % (Auto) 23.1 [place] % (Auto) 9.2 H Eos % (Auto) 1.2 L Baso % (Auto) 0.2 Gran # 8.25 H Lymph # (Auto) 2.9 [place] # (Auto) 1.1 H Eos # (Auto) 0.2 Baso # (Auto) 0.02 Sodium 139 Potassium 3.9 Chloride 107 Carbon Dioxide 24 Anion Gap 12 BUN 9 Creatinine 0.7 L Est GFR ( Amer) > 60 Est GFR (Non-Af Amer) > 60 Random Glucose 118 H Calcium 7.5 L Phosphorus 2.3 L Magnesium 1.9 Total Bilirubin 0.1 L AST 37 ALT 52 Alkaline Phosphatase 66 Total Protein 5.8 Albumin 2.8 L Globulin 3.0 Albumin/Globulin Ratio 0.9 L Procalcitonin Urine Color Urine Appearance Urine pH Ur Specific [place] Urine Protein Urine Glucose (UA) Urine Ketones Urine Blood Urine Nitrate Urine Bilirubin Urine Urobilinogen Ur Leukocyte Esterase Urine RBC Urine WBC Ur Epithelial Cells Urine Bacteria Hepatitis A IgM Ab Hep Bs Antigen Hep B Core IgM Ab Hepatitis C Antibody
--- NOTE | 2017-10-11 13:04 | CP.PCM.PN ---
<ClarenceSeven can - Last Filed: 10/11/17 12:47> Subjective - Date & Time of Evaluation Date of Evaluation: 10/11/17 Time of Evaluation: 12:47 - Subjective Subjective: Patient seen and examined at bedside. Doing well. Still complaining of some pain in the hand especially with extension of the fingers. No fevers or chills. No other complaints at this time. Objective - Vital Signs/Intake and Output Vital Signs (last 24 hours): Temp Pulse Resp BP Pulse Ox 98.5 F 69 19 112/70 99 10/11/17 07:58 10/11/17 07:58 10/11/17 07:58 10/11/17 07:58 10/11/17 07:58 Intake and Output: 10/11/17 10/11/17 06:59 18:59 Output Total 950 Balance -950 - Medications Medications: Current Medications Acetaminophen (Tylenol 325mg Tab) 650 mg PO Q4H PRN PRN Reason: Fever >100.4 F Calcium Carbonate (Caltrate) 600 mg PO DAILY [facility] Last Admin: 10/11/17 10:23 Dose: 600 mg Vancomycin HCl (Vancomycin 1gm) 1 gm in 250 mls @ 167 mls/hr IVPB Q12H OLEKSANDR PRN Reason: Protocol Last Admin: 10/11/17 02:25 Dose: 167 mls/hr Cefepime HCl (Maxipime 1gm) 1 gm in 100 mls @ 100 mls/hr IVPB Q8 OLEKSANDR PRN Reason: Protocol Stop: 10/19/17 14:01 Last Admin: 10/11/17 06:13 Dose: 100 mls/hr Sodium Phosphate 15 mmole/ (Dextrose) 255 mls @ 42.5 mls/hr IVPB ONCE ONE Stop: 10/11/17 15:08 Last Admin: 10/11/17 10:22 Dose: 42.5 mls/hr - Labs Labs: 10/11/17 06:00 10/11/17 06:00 - Additional Findings Additional findings: - Constitutional Appears: Non-toxic, No Acute Distress - Head Exam Head Exam: ATRAUMATIC, NORMOCEPHALIC - Eye Exam Eye Exam: EOMI, Normal appearance, PERRL. absent: Conjunctival injection Pupil Exam: absent: Miosis, Mydriatic - ENT Exam ENT Exam: Mucous Membranes Moist, Normal Oropharynx - Neck Exam Neck exam: Positive for: Normal Inspection. Negative for: Meningismus - Respiratory Exam Respiratory Exam: Clear to Auscultation Bilateral, NORMAL BREATHING PATTERN. absent: Rales, Rhonchi, Wheezes - Cardiovascular Exam Cardiovascular Exam: RRR, +S1, +S2. absent: Diastolic murmur, Gallop, +S4, Systolic Murmur - GI/Abdominal Exam GI & Abdominal Exam: Soft. absent: Distended, Firm, Guarding, Rigid, Tenderness - Extremities Exam Extremities exam: Negative for: calf tenderness, pedal edema Additional comments: Right wrist with erythema and edema, and 2mm abrasion near palmar-radial aspect. Increased swelling and pain on passive flexion and extension of the fingers. Pulses are present and equal bilaterally. No pallor present. - Neurological Exam Neurological exam: Alert, CN II-XII Intact, Oriented x3 Additional comments: 5/5 strength in all four extremitites Normal sensation throughout - Psychiatric Exam Psychiatric exam: Normal Affect, Normal Mood - Skin Skin Exam: Dry, Intact, Normal Color Additional comments: See extremities exam Assessment and Plan (1) Cellulitis of forearm, right Assessment & Plan: General Surgery ([facility]) - continue Abx, no intervention needed at this time ID ([facility]) Hand Surgery ([facility]) TTE to eval for endocarditis Vanco trough tomorrow morning Cefepime and vanco Blood cultures negative thus far Status: Acute (2) Drug abuse Assessment & Plan: Counselled will monitor for signs of w/d Status: Acute (3) Hepatitis C infection Assessment & Plan: Will need to be evaluated at GI clinic for treatment. Will need to go to [facility] for treatment. I will provide this information for him at discharge Status: Chronic (4) Prophylactic measure Assessment & Plan: Heparin Lactobacillus SCD No GI PPX indicated at this time Status: Acute <Satish Drummond B - Last Filed: 10/11/17 15:15> Objective - Vital Signs/Intake and Output Vital Signs (last 24 hours): Temp Pulse Resp BP Pulse Ox 98.5 F 69 19 112/70 99 10/11/17 07:58 10/11/17 07:58 10/11/17 07:58 10/11/17 07:58 10/11/17 07:58 Intake and Output: 10/11/17 10/11/17 06:59 18:59 Intake Total 840 Output Total 950 900 Balance -950 -60 - Medications Medications: Current Medications Acetaminophen (Tylenol 325mg Tab) 650 mg PO Q4H PRN PRN Reason: Fever >100.4 F Calcium Carbonate (Caltrate) 600 mg PO DAILY [facility] Last Admin: 10/11/17 10:23 Dose: 600 mg Heparin Sodium (Porcine) (Heparin) 5,000 units SC Q8 OLEKSANDR PRN Reason: Protocol Last Admin: 10/11/17 13:48 Dose: Not Given Vancomycin HCl (Vancomycin 1gm) 1 gm in 250 mls @ 167 mls/hr IVPB Q12H OLEKSANDR PRN Reason: Protocol Last Admin: 10/11/17 02:25 Dose: 167 mls/hr Cefepime HCl (Maxipime 1gm) 1 gm in 100 mls @ 100 mls/hr IVPB Q8 OLEKSANDR PRN Reason: Protocol Stop: 10/19/17 14:01 Last Admin: 10/11/17 13:47 Dose: 100 mls/hr Sodium Phosphate 15 mmole/ (Dextrose) 255 mls @ 42.5 mls/hr IVPB ONCE ONE Stop: 10/11/17 15:08 Last Admin: 10/11/17 10:22 Dose: 42.5 mls/hr Lactobacillus Acidophilus (Bacid Acidophilus) 1 cap PO BID OLEKSANDR - Labs Labs: 10/11/17 06:00 10/11/17 06:00 Attending/Attestation - Attestation I have personally seen and examined this patient.: Yes I have fully participated in the care of the patient.: Yes I have reviewed all pertinent clinical information, including history, physical exam and plan: Yes Notes (Text): I have seen and examined the patient at bedside. Agree with the above note with the following additions/ exceptions: Briefly this is 27 year old male with history of IVDA, known and untreated Hep C, cocaine abuse, heroin use and alcohol abuse who came for evaluation of cellulitis of right wrist and fore arm. Cellulitis is improving. Continue cefepime and vanco. Follow up on blood cultures. Will order TTE. Surgery consult appreciated. No intervention recommended. Advised pateint to follow up with sign wirer for HCV treatment. Counselling provided regarding polysubstance abuse. Will monitor for signs and symptoms of withdrawal. Upon discharge patient will follow up with PMD of choice.
[2017-10-11] MEDS: Lactobacillus Acidophilus 500 MU Cap PO SCH (17:26)
--- NOTE | 2017-10-11 17:41 | CP.PCM.PN ---
Subjective - Date & Time of Evaluation Date of Evaluation: 10/11/17 Time of Evaluation: 10:25 - Subjective Subjective: Right arm is feeling better but still with some pain, no fevers, no nausea or diarrhea. Objective - Vital Signs/Intake and Output Vital Signs (last 24 hours): Temp Pulse Resp BP Pulse Ox 98.5 F 69 19 112/70 99 10/11/17 07:58 10/11/17 07:58 10/11/17 07:58 10/11/17 07:58 10/11/17 07:58 Intake and Output: 10/11/17 10/11/17 06:59 18:59 Output Total 950 Balance -950 - Medications Medications: Current Medications Acetaminophen (Tylenol 325mg Tab) 650 mg PO Q4H PRN PRN Reason: Fever >100.4 F Sodium Chloride (Sodium Chloride 0.9%) 1,000 mls @ 150 mls/hr IV .Q6H40M [facility] Last Admin: 10/11/17 01:00 Dose: 150 mls/hr Vancomycin HCl (Vancomycin 1gm) 1 gm in 250 mls @ 167 mls/hr IVPB Q12H OLEKSANDR PRN Reason: Protocol Last Admin: 10/11/17 02:25 Dose: 167 mls/hr Cefepime HCl (Maxipime 1gm) 1 gm in 100 mls @ 100 mls/hr IVPB Q8 OLEKSANDR PRN Reason: Protocol Stop: 10/19/17 14:01 Last Admin: 10/11/17 06:13 Dose: 100 mls/hr Ibuprofen (Motrin Tab) 400 mg PO Q6H PRN PRN Reason: Pain, Mild (1-3) - Labs Labs: 10/11/17 06:00 10/11/17 06:00 - Constitutional Appears: Chronically Ill - Head Exam Head Exam: NORMAL INSPECTION - ENT Exam ENT Exam: Mucous Membranes Moist - Neck Exam Neck Exam: absent: Meningismus - Respiratory Exam Respiratory Exam: Decreased Breath Sounds - Cardiovascular Exam Cardiovascular Exam: +S1, +S2 - GI/Abdominal Exam GI & Abdominal Exam: Soft. absent: Tenderness - Extremities Exam Additional comments: right arm with streaking up to axillary area, no fluctuance, decreasing erythema , decreasing tenderness Assessment and Plan - Assessment and Plan (Free Text) Plan: Assessment sepsis due to right arm cellulitis, slowly improving HCV antibody positive history of systemic Inflammatory Response Syndrome with marked leukocytosis from vascular congestion S/P acute renal failure history of rhabdomyolysis polysubstance abuse Plan continue Vancomycin and Cefepime day 2; blood and urine cultures are negative - if patient continues to improve, may be able to switch to PO antibiotics tomorrow follow up HCV RNA PCR follow up rapid HIV test will continue to monitor clinically
[2017-10-12] MEDS: Vancomycin 1gm in NS 250ml 1 GM/250 ML BAG IVPB SCH ×2 (02:09→17:26)
[2017-10-12] MEDS: Cefepime 1gm in NS 100ml 1 GM/100 ML BAG IVPB SCH ×3 (05:34→21:44)
[2017-10-12 06:50] LABS: BASO # 0.05 K/mm3 (0.0-2.0); BASO % 0.6 % (0.0-3.0); EOS # 0.2 (0.0-0.7); EOS % 2.2 % (1.5-5.0); GRAN # 4.3 (1.4-6.5); GRAN % 52.7 % (50.0-68.0); HEMOGLOBIN 12.2 g/dL (14.0-18.0); LYMPH # 2.8 (1.2-3.4); LYMPH % 34.4 % (22.0-35.0); MEAN CELL VOLUME 90.4 fl (80.0-105.0); MEAN CORPUSCULAR HEMOGLOBIN 29.9 pg (25.0-35.0); MEAN CORPUSCULAR HGB CONC 33.1 g/dl (31.0-37.0); MEAN PLATELET VOLUME 9.5 fl (7.0-11.0); MONO # 0.8 (0.1-0.6); MONO % 10.1 % (1.0-6.0); RBC 4.08 10^6/uL (3.5-6.1); RED CELL DISTRIBUTION WIDTH 13.7 % (11.5-14.5); WHITE BLOOD COUNT 8.2 10^3/ul (4.5-11.0)
[2017-10-12 07:14] LABS: ALB/GLOB RATIO 0.9 (1.1-1.8); ALT/SGPT 53 U/L (7-56); AST/SGOT 28 U/L (17-59); BLOOD UREA NITROGEN 12 mg/dL (7-21); CALCIUM 8.3 mg/dL (8.4-10.5); GFR AFRICAN-AMERICAN > 60; GFR NON-AFRICAN AMERICAN > 60
[2017-10-12] MEDS: Lactobacillus Acidophilus 500 MU Cap PO SCH ×2 (09:57→17:27)
--- NOTE | 2017-10-12 10:26 | CARD ---
APPROVED REPORT EKG Measurement Heart [id number] <Conclusion> Sinus bradycardia Otherwise normal ECG
--- NOTE | 2017-10-12 11:40 | CP.PCM.PN ---
<Lindsay Garcia - Last Filed: 10/12/17 13:27> Subjective - Date & Time of Evaluation Date of Evaluation: 10/12/17 Time of Evaluation: 07:35 - Subjective Subjective: IM progress note for Dr. Manny Garcia, PGY-1 Pt S & E at bedside at 0735 Pt reports continued pain/swelling of Right wrist. States that redness has gotten better. Denies N & V, F & C, chest pain, SOB, other complaints. Objective - Vital Signs/Intake and Output Vital Signs (last 24 hours): Temp Pulse Resp BP Pulse Ox 97.5 F L 43 L 16 104/60 100 10/12/17 08:03 10/12/17 08:03 10/12/17 08:03 10/12/17 08:03 10/12/17 08:03 Intake and Output: 10/12/17 10/12/17 06:59 18:59 Intake Total 1020 Balance 1020 - Medications Medications: Current Medications Acetaminophen (Tylenol 325mg Tab) 650 mg PO Q4H PRN PRN Reason: Fever >100.4 F Calcium Carbonate (Caltrate) 600 mg PO DAILY [facility] Last Admin: 10/12/17 09:57 Dose: 600 mg Heparin Sodium (Porcine) (Heparin) 5,000 units SC Q8 OELKSANDR PRN Reason: Protocol Last Admin: 10/12/17 05:35 Dose: Not Given Vancomycin HCl (Vancomycin 1gm) 1 gm in 250 mls @ 167 mls/hr IVPB Q12H OLEKSANDR PRN Reason: Protocol Last Admin: 10/12/17 02:09 Dose: 167 mls/hr Cefepime HCl (Maxipime 1gm) 1 gm in 100 mls @ 100 mls/hr IVPB Q8 OLEKSANDR PRN Reason: Protocol Stop: 10/19/17 14:01 Last Admin: 10/12/17 05:34 Dose: 100 mls/hr Ibuprofen (Motrin Tab) 400 mg PO Q6H PRN PRN Reason: Pain, moderate (4-7) Lactobacillus Acidophilus (Bacid Acidophilus) 1 cap PO BID [facility] Last Admin: 10/12/17 09:57 Dose: 1 cap - Labs Labs: 10/12/17 06:00 10/12/17 06:00 - Constitutional Appears: Non-toxic, No Acute Distress - Head Exam Head Exam: ATRAUMATIC, NORMAL INSPECTION, NORMOCEPHALIC - Eye Exam Eye Exam: EOMI, Normal appearance - ENT Exam ENT Exam: Mucous Membranes Moist, Normal Exam - Neck Exam Neck Exam: Full ROM, Normal Inspection - Respiratory Exam Respiratory Exam: Clear to Ausculation Bilateral, NORMAL BREATHING PATTERN - Cardiovascular Exam Cardiovascular Exam: REGULAR RHYTHM, +S1, +S2 - GI/Abdominal Exam GI & Abdominal Exam: Soft, Normal Bowel Sounds. absent: Tenderness - Extremities Exam Extremities Exam: Tenderness. absent: Normal Inspection Additional comments: right wrist with slight erythema, swelling, decreased ROM in Flexion/extension. Can flex fingers, make a fist. Erythema of upper arm resolved. - Neurological Exam Neurological Exam: Alert, Awake, Oriented x3 - Psychiatric Exam Psychiatric exam: Normal Affect, Normal Mood - Skin Skin Exam: Dry, Erythema (slight, at wrist with small scabs in place), Intact, Normal Color, Warm Assessment and Plan - Assessment and Plan (Free Text) Assessment: Sepsis 2/2 Right arm cellulitis-improving Plan: Sepsis 2/2 Right arm cellulitis-improving Afebrile over 24H Leukocytosis resolved - 8.2 from 12.4 Hep C ab pos FU HCV RNA PCR FU TTE Blood cx neg Urine cx neg Tylenol HIV neg Surgery following- refer to hand specialist, Abx ID following- vanc, Cefepime day [address] on remote tele EKG w/sinus bradycardia Echo w/EF 65%, Thickened arotic, mitral, tricuspide, and pulmonary valve, trace MR, mild TR, very minute echogenic mobile structure attached to aortic valve leaflets. Possible fibroelastosis, but can't R/O vegetation. Suggest JORGE FU JORGE Substance abuse Monitor for withdrawal Encourage cessation Hep C Recommend FU outpatient with GI clinic for treatment w/UMDNJ upon d/c GI/DVT ppx Heparin Lactobacillus SCD No GI ppx indicated at this time Dispo PT Remote tele DW attending Radha, PGY-1 <Satish Drummond B - Last Filed: 10/12/17 14:13> Objective - Vital Signs/Intake and Output Vital Signs (last 24 hours): Temp Pulse Resp BP Pulse Ox 97.5 F L 43 L 16 104/60 100 10/12/17 08:03 10/12/17 08:03 10/12/17 08:03 10/12/17 08:03 10/12/17 08:03 Intake and Output: 10/12/17 10/12/17 06:59 18:59 Intake Total 1020 Balance 1020 - Medications Medications: Current Medications Acetaminophen (Tylenol 325mg Tab) 650 mg PO Q4H PRN PRN Reason: Fever >100.4 F Calcium Carbonate (Caltrate) 600 mg PO DAILY [facility] Last Admin: 10/12/17 09:57 Dose: 600 mg Heparin Sodium (Porcine) (Heparin) 5,000 units SC Q8 OLEKSANDR PRN Reason: Protocol Last Admin: 10/12/17 14:00 Dose: Not Given Vancomycin HCl (Vancomycin 1gm) 1 gm in 250 mls @ 167 mls/hr IVPB Q12H OLEKSANDR PRN Reason: Protocol Last Admin: 10/12/17 02:09 Dose: 167 mls/hr Cefepime HCl (Maxipime 1gm) 1 gm in 100 mls @ 100 mls/hr IVPB Q8 OLEKSANDR PRN Reason: Protocol Stop: 10/19/17 14:01 Last Admin: 10/12/17 14:00 Dose: 100 mls/hr Ibuprofen (Motrin Tab) 400 mg PO Q6H PRN PRN Reason: Pain, moderate (4-7) Lactobacillus Acidophilus (Bacid Acidophilus) 1 cap PO BID [facility] Last Admin: 10/12/17 09:57 Dose: 1 cap - Labs Labs: 10/12/17 06:00 10/12/17 06:00 Attending/Attestation - Attestation I have personally seen and examined this patient.: Yes I have fully participated in the care of the patient.: Yes I have reviewed all pertinent clinical information, including history, physical exam and plan: Yes Notes (Text): I have seen and examined the patient at bedside. Agree with the above note with the following additions/ exceptions: Briefly this is 27 year old male with history of IVDA, known and untreated Hep C, cocaine abuse, heroin use and alcohol abuse who came for evaluation of cellulitis of right wrist and fore arm. Cellulitis is improving. Surgery consult appreciated and they recommended no intervention. Hand specialist is not available. Will refer for outpatient evaluation. Continue cefepime and vanco. Blood cultures are negative so far. TTE revealed thickened AV, MV, TV and PV. Also very minute echogenic mobile structure was seen attached to AV leaflets. Cardiology consult requested for JORGE. Patient also was noted to have bradycardia while having an echo. Will check TFTs and start tele monitoring. Advised patient to follow up with [facility] for HCV treatment. Counselling provided regarding polysubstance abuse. Will monitor for signs and symptoms of withdrawal. Upon discharge patient will follow up with PMD of choice.
--- NOTE | 2017-10-12 12:26 | CARD ---
APPROVED REPORT EXAM: Two-dimensional and M-mode echocardiogram with Doppler and color Doppler. INDICATION Infection:Rule out subacute bacterial endocarditis 2D DIMENSIONS Left Atrium (2D)3.8 (1.6-4.0cm)IVSd1.2 (0.7-1.1cm) LVDd5.4 (3.9-5.9cm)PWd1.1 (0.7-1.1cm) LVDs3.4 (2.5-4.0cm)FS (%) 37.7 % LVEF (%)67.3 (>50%) M-Mode DIMENSIONS Aortic Root2.70 (2.2-3.7cm)Aortic Cusp Exc.2.20 (1.5-2.0cm) Aortic Valve AoV Peak Cfgjjaoq678.0cm/Ang[place] Peak GR.9mmHg Mitral Valve MV E Wuibphai980.0cm/sMV A Ksyfiiyp20.2cm/sE/A ratio2.7 TDI E/Lateral E'0.0E/Medial E'0.0 Tricuspid Valve TR Peak Mobxxozm002ki/sRAP [id number] Peak Gr.19mmHg [id number] LEFT VENTRICLE The left ventricle is normal size. There is normal left ventricular wall thickness. The left ventricular function is normal.EF-65% There is normal LV segmental wall motion. The left ventricular diastolic function is normal. No left ventricle thrombus noted on this study. There is no ventricular septal defect visualized. There is no left ventricular aneurysm. There is no mass noted in the left ventricle. RIGHT VENTRICLE The right ventricle is normal size. There is normal right ventricular wall thickness. The right ventricular systolic function is normal. ATRIA The left atrium size is normal. The right atrium size is normal. The interatrial septum is intact with no evidence for an atrial septal defect. AORTIC VALVE The aortic valve is moderately thickened. The aortic valve is mildly sclerotic., No aortic regurgitation is present. There is no aortic valvular stenosis. Very minute echogenic Mobobile structure attached to Aortic Valve leaflets, Possible Fibroelastosibut can not R/o Vegetation, though unlikely, NO AR, Suggest JORGE. MITRAL VALVE The mitral valve is thickened but opens well. Mitral regurgitation is trace. There is no mitral valve stenosis. There is no evidence of mitral valve prolapse. TRICUSPID VALVE The tricuspid valve leaflets are thickened , but open well. There is trace tricuspid regurgitation.RVSP-29 mmof Hg. There is no tricuspid valve stenosis. There is no tricuspid valve prolapse or vegetation. PULMONIC VALVE The pulmonic valve is mildly thickened. There is no pulmonic valvular regurgitation. There is no pulmonic valvular stenosis. GREAT VESSELS The aortic root is normal in size. The ascending aorta is normal in size. The pulmonary artery is normal. The IVC is normal in size and collapses >50% with inspiration. PERICARDIAL EFFUSION There is no pleural effusion. There is no pericardial effusion. <Conclusion> Npormal chamber Size. Ef-65% Thickened Aortic, Mitral, tricuspid and Pulmonary valve. trace MR Mild TR, RVSP-29 mmof Hg. Very minute echogenic Mobobile structure attached to Aortic Valve leaflets, Possible Fibroelastosi but can not R/o Vegetation, though unlikely, NO AR, Suggest JORGE.Corelate clinically.
[2017-10-12 15:19] LABS: FREE T4 1.08 ng/dL (0.78-2.19)
--- NOTE | 2017-10-12 20:37 | PN ---
DATE: 10/12/2017 SUBJECTIVE: The patient is in bed, in no acute distress, nontoxic. The patient was seen earlier this morning in room 368. PHYSICAL EXAMINATION: VITAL SIGNS: Temperature is 97 and he has been afebrile now for almost 48 hours with a blood pressure of 100/50, respiratory rate of 18, heart rate of 50. HEENT: Unremarkable. NECK: Supple. LUNGS: Decreased breath sounds. HEART: Normal S1, S2. ABDOMEN: Soft, nontender. LABORATORY EXAMINATION: Reveals a white count of 8.2, hemoglobin of 12, and platelets of 214. Vancomycin trough is less than 5. HIV is negative. Hepatitis C is positive. Microbiology reveals the blood cultures are negative. An echocardiogram is noted. Very very minute echogenic mobile structure attached to the aortic valve. Cardiology recommended JORGE. ASSESSMENT AND PLAN: This is a 27-year-old white male seen earlier today in 368, bed 2, who was admitted with sepsis, who is an active intravenous drug abuser with right arm cellulitis have just resolved; however, the right hand still has significant erythema, who has had hepatitis C and a questionable valve vegetation. Though the blood cultures are negative, the echo cannot rule out a mobile vegetation, must rule out underlying endocarditis. We will continue the current regimen with vancomycin and cefepime, and waiting for JORGE results and resolution of the right hand cellulitis. He has full function of all his fingers. He is able to extend and flex the fingers, although the hand does have some edema. We will follow closely with you. May consider imaging of the right hand whether it is there on CAT scan. We will follow with you and repeat a vancomycin trough level. The patient received vancomycin at hours for tomorrow. We will make further recommendations depending on JORGE results and final culture results and clinical resolution of the hand. We will also order a CT of the right hand. Shukri Smiley MD
[2017-10-13] MEDS: Vancomycin 1gm in NS 250ml 1 GM/250 ML BAG IVPB SCH ×2 (02:16→15:42)
--- NOTE | 2017-10-13 04:47 | CON ---
DATE: 10/12/2017 CARDIOLOGY CONSULTATION REASON FOR CONSULTATION: Rule out bacterial endocarditis. HISTORY OF PRESENT ILLNESS: Patient is a 27-year-old male who is an active intravenous drug abuser. He presented because of right hand cellulitis what sounded to be right axillary lymphadenitis following intravenous drug abuse. Patient denies any prior infection related to his drug abuse and any prior bacterial endocarditis as far as he reports. Patient denies any chest pain, dizziness. Patient was unaware of fever; however, his on admission was 102. SOCIAL HISTORY: Patient is an active intravenous drug abuser. He denies sharing needles. MEDICATIONS: Lactobacillus acidophilus one tablet twice a day, subcutaneous heparin 5000 units every 8 hours, Maxipime 1 g intravenously every 8 hours, vancomycin 1 g intravenously every 12 hours. REVIEW OF SYSTEMS: No vomiting. No diarrhea. No dizziness or syncope. PHYSICAL EXAMINATION: GENERAL: Patient is a young male who does not appear to be in acute distress. VITAL SIGNS: Blood pressure 104/60, heart rate 43, temperature 97.5, respirations 16. HEENT: Normocephalic. CHEST: Clear. HEART: S1, S2 regular. ABDOMEN: Soft. EXTREMITIES: No pedal edema. Right hand cellulitis. LABORATORY DATA: Hemoglobin and hematocrit 12.2 and 36.9. White count and platelet count today are within normal limits. White count on admission was 23.7. Today's SMA-7 is within normal limits except for chloride of 111 and creatinine 0.7. TSH and free T4 level are within normal limits. Hepatitis A, B serologies are negative. Hepatitis C antibody is reactive. HIV 1 and 2 antigen antibody fourth generation is nonreactive. EKG revealed sinus bradycardia at the rate of 51, otherwise unremarkable. Echocardiographic study revealed normal chamber size, normal ejection fraction; very minute echogenic mobile structure attached to the aortic valve leaflets, possible fibroelastosis, but cannot rule out vegetation, suggest JORGE, correlate clinically. Blood culture is negative after 48 hours. ASSESSMENT: 1. Right hand cellulitis. 2. Active intravenous drug abuser. 3. Rule out aortic vegetation. RECOMMENDATIONS: Continue current subcutaneous heparin, IV Maxipime, IV vancomycin and oral Lactobacillus. The patient was offered transesophageal echo, however, he was very upset with the fact that he was expected to go home today. I discussed the case with Dr. Drummond, and if the patient accepts to stay until , the procedure will be scheduled on morning, pending the availability of anesthesia team. Herson Quintero MD
[2017-10-13] MEDS: Cefepime 1gm in NS 100ml 1 GM/100 ML BAG IVPB SCH ×2 (05:26→15:43)
[2017-10-13 06:21] LABS: BASO # 0.04 K/mm3 (0.0-2.0); BASO % 0.4 % (0.0-3.0); EOS # 0.3 (0.0-0.7); GRAN # 4.89 (1.4-6.5); GRAN % 53.3 % (50.0-68.0); HEMOGLOBIN 12.5 g/dL (14.0-18.0); LYMPH # 3.4 (1.2-3.4); LYMPH % 36.6 % (22.0-35.0); MEAN CELL VOLUME 91.1 fl (80.0-105.0); MEAN CORPUSCULAR HEMOGLOBIN 29.3 pg (25.0-35.0); MEAN CORPUSCULAR HGB CONC 32.2 g/dl (31.0-37.0); MEAN PLATELET VOLUME 9.2 fl (7.0-11.0); MONO # 0.6 (0.1-0.6); MONO % 6.7 % (1.0-6.0); RBC 4.26 10^6/uL (3.5-6.1); RED CELL DISTRIBUTION WIDTH 13.7 % (11.5-14.5); WHITE BLOOD COUNT 9.2 10^3/ul (4.5-11.0)
[2017-10-13 06:47] LABS: ALB/GLOB RATIO 0.9 (1.1-1.8); ALT/SGPT 56 U/L (7-56); AST/SGOT 45 U/L (17-59); BLOOD UREA NITROGEN 8 mg/dL (7-21); CALCIUM 8.3 mg/dL (8.4-10.5); GFR AFRICAN-AMERICAN > 60; GFR NON-AFRICAN AMERICAN > 60
[2017-10-13 07:50] VITALS: BP 115/72; PULSE 51; RESP 16; TEMP 98.4; O2SAT 100
[2017-10-13] MEDS: Lactobacillus Acidophilus 500 MU Cap PO SCH (09:02)
--- NOTE | 2017-10-13 09:54 | CT ---
PROCEDURE: CT of the right hand without contrast HISTORY: right hand / r/o collection ivda COMPARISON: TECHNIQUE: Radiation dose: Total exam DLP = 194 mGy-cm. This CT exam was performed using one or more of the following dose reduction techniques: Automated exposure control, adjustment of the mA and/or kV according to patient size, and/or use of iterative reconstruction technique. FINDINGS: There are no focal fluid collections. There is no evidence of osteomyelitis. There is minimal subcutaneous edema. IMPRESSION: No evidence of abscess collection or osteomyelitis
--- NOTE | 2017-10-13 14:08 | CP.PCM.PN ---
<Seven New - Last Filed: 10/13/17 14:10> Subjective - Date & Time of Evaluation Date of Evaluation: 10/13/17 Time of Evaluation: 14:06 - Subjective Subjective: Patient seen and examined at bedside. No fevers or chills. No new complaints at this time. Tolerating diet. No chest pain or SOB Objective - Vital Signs/Intake and Output Vital Signs (last 24 hours): Temp Pulse Resp BP Pulse Ox 98.4 F 51 L 16 115/72 100 10/13/17 06:00 10/13/17 10:00 10/13/17 06:00 10/13/17 06:00 10/13/17 06:00 Intake and Output: 10/13/17 10/13/17 06:59 18:59 Intake Total 1040 Balance 1040 - Medications Medications: Current Medications Acetaminophen (Tylenol 325mg Tab) 650 mg PO Q4H PRN PRN Reason: Fever >100.4 F Calcium Carbonate (Caltrate) 600 mg PO DAILY [facility] Last Admin: 10/13/17 09:02 Dose: 600 mg Heparin Sodium (Porcine) (Heparin) 5,000 units SC Q8 OLEKSANDR PRN Reason: Protocol Last Admin: 10/13/17 05:00 Dose: Not Given Vancomycin HCl (Vancomycin 1gm) 1 gm in 250 mls @ 167 mls/hr IVPB Q12H OLEKSANDR PRN Reason: Protocol Last Admin: 10/13/17 02:16 Dose: 167 mls/hr Cefepime HCl (Maxipime 1gm) 1 gm in 100 mls @ 100 mls/hr IVPB Q8 [facility] PRN Reason: Protocol Stop: 10/19/17 14:01 Last Admin: 10/13/17 05:26 Dose: 100 mls/hr Ibuprofen (Motrin Tab) 400 mg PO Q6H PRN PRN Reason: Pain, moderate (4-7) Lactobacillus Acidophilus (Bacid Acidophilus) 1 cap PO BID [facility] Last Admin: 10/13/17 09:02 Dose: 1 cap - Labs Labs: 10/13/17 06:00 10/13/17 06:00 - Constitutional Appears: Well - Head Exam Head Exam: ATRAUMATIC, NORMAL INSPECTION, NORMOCEPHALIC - Eye Exam Eye Exam: EOMI, Normal appearance, PERRL Pupil Exam: NORMAL ACCOMODATION, PERRL - ENT Exam ENT Exam: Mucous Membranes Moist, Normal Exam - Neck Exam Neck Exam: Full ROM, Normal Inspection. absent: Lymphadenopathy - Respiratory Exam Respiratory Exam: Clear to Ausculation Bilateral, NORMAL BREATHING PATTERN - Cardiovascular Exam Cardiovascular Exam: REGULAR RHYTHM, +S1, +S2. absent: Murmur - GI/Abdominal Exam GI & Abdominal Exam: Soft, Normal Bowel Sounds. absent: Tenderness - Extremities Exam Extremities Exam: Full ROM, Normal Capillary Refill, Normal Inspection. absent : Joint Swelling, Pedal Edema - Back Exam Back Exam: NORMAL INSPECTION - Neurological Exam Neurological Exam: Alert, Awake, CN II-XII Intact, Normal Gait, Oriented x3 - Psychiatric Exam Psychiatric exam: Normal Affect, Normal Mood - Skin Skin Exam: Dry, Intact, Normal Color, Warm Assessment and Plan - Assessment and Plan (Free Text) Assessment: (1) Cellulitis of forearm, right Assessment & Plan: General Surgery (Ayah) - continue Abx, no intervention needed at this time ID (Sherice) Hand Surgery (Beth) JORGE Scheduled for the am Cefepime and vanco Blood cultures negative thus far Status: Acute (2) Drug abuse Assessment & Plan: Counselled will monitor for signs of w/d Status: Acute (3) Hepatitis C infection Assessment & Plan: Will need to be evaluated at GI clinic for treatment. Will need to go to [facility] for treatment. I will provide this information for him at discharge Status: Chronic (4) Prophylactic measure Assessment & Plan: Heparin Lactobacillus SCD No GI PPX indicated at this time Status: Acute <Kleber Prasad - Last Filed: 10/13/17 14:32> Objective - Vital Signs/Intake and Output Vital Signs (last 24 hours): Temp Pulse Resp BP Pulse Ox 98.4 F 51 L 16 115/72 100 10/13/17 06:00 10/13/17 10:00 10/13/17 06:00 10/13/17 06:00 10/13/17 06:00 Intake and Output: 10/13/17 10/13/17 06:59 18:59 Intake Total 1040 Balance 1040 - Medications Medications: Current Medications Acetaminophen (Tylenol 325mg Tab) 650 mg PO Q4H PRN PRN Reason: Fever >100.4 F Calcium Carbonate (Caltrate) 600 mg PO DAILY [facility] Last Admin: 10/13/17 09:02 Dose: 600 mg Heparin Sodium (Porcine) (Heparin) 5,000 units SC Q8 OLEKSANDR PRN Reason: Protocol Last Admin: 10/13/17 05:00 Dose: Not Given Vancomycin HCl (Vancomycin 1gm) 1 gm in 250 mls @ 167 mls/hr IVPB Q12H OLEKSANDR PRN Reason: Protocol Last Admin: 10/13/17 02:16 Dose: 167 mls/hr Cefepime HCl (Maxipime 1gm) 1 gm in 100 mls @ 100 mls/hr IVPB Q8 OLEKSANDR PRN Reason: Protocol Stop: 10/19/17 14:01 Last Admin: 10/13/17 05:26 Dose: 100 mls/hr Ibuprofen (Motrin Tab) 400 mg PO Q6H PRN PRN Reason: Pain, moderate (4-7) Lactobacillus Acidophilus (Bacid Acidophilus) 1 cap PO BID [facility] Last Admin: 10/13/17 09:02 Dose: 1 cap - Labs Labs: 10/13/17 06:00 10/13/17 06:00 Attending/Attestation - Attestation I have personally seen and examined this patient.: Yes I have fully participated in the care of the patient.: Yes I have reviewed all pertinent clinical information, including history, physical exam and plan: Yes Notes (Text): Patient seen and examined, Agree with above Marked improvement of RUE cellulitis evidenced by the line of demarcation Afebrile, hemodynamically stable On broad spectrum Abx with Vanco/Cefepime. Blood cx negative thus far - ID following CT scan of the RUE with no abscess formation Cannot r/o AV vegetation on TTE, Cardio consultation appreciated for further evaluation with JORGE NPO after midnight on 10/14 for JORGE Counselled on ivda cessation Plan of care made aware to the patient
--- NOTE | 2017-10-13 15:39 | PN ---
DATE: 10/13/2017 SUBJECTIVE: The patient is in bed, seen earlier this morning, doing well. No fevers. No chills. His hand has much improved. He has full function of his hand. PHYSICAL EXAMINATION: VITAL SIGNS: Temperature is 98, blood pressure is 151/70, respiratory rate is 20. HEENT: Unremarkable. NECK: Supple. LUNGS: Decreased breath sounds. HEART: Normal S1, S2. ABDOMEN: Soft. LABORATORY EXAMINATION: Reveals white count of 9 and hemoglobin of 12. Chemistries are noted. Urinalysis is noted. Vancomycin trough level of 17.3 is reviewed. HIV is negative. Microbiology reveals urine and blood cultures have no growth. The patient had CAT scan of the hand, no evidence of osteomyelitis, no evidence of abscess. ASSESSMENT AND PLAN: This is a 27-year-old male admitted with sepsis, who is an active intravenous drug abuser, right arm and right hand with cellulitis, significant improvement. Patient with hepatitis C and questionable valve vegetations on the valve, although the blood cultures are reported if negative, awaiting for JORGE. If the JORGE is negative, we will change the antibiotics to p.o. Currently on vancomycin and cefepime. Patient's arm and hand . We will also order the sed rate, C-reactive protein, and procalcitonin. Dr. Quintero's consultation yesterday is reviewed. Shukri Smiley MD
--- NOTE | 2017-10-13 19:58 | PN ---
DATE: 10/13/2017 SUBJECTIVE: The patient denies chest pain. PHYSICAL EXAMINATION: VITAL SIGNS: Blood pressure 115/72, heart rate 61, temperature 98.4, respirations 16. HEENT: Normocephalic. CHEST: Clear. HEART: S1 and S2 regular. EXTREMITIES: No edema. LABORATORY DATA: Hemoglobin and hematocrit 125 and 38.8. White count and platelet count are within normal limit. Today's SMA-7 is within normal limit except for chloride 109 and creatinine 0.7. ASSESSMENT: 1. Rule out bacterial endocarditis. 2. Right hand cellulitis. 3. Active intravenous drug abuser. RECOMMENDATIONS: Continue current IV vancomycin. The patient agreed to have transesophageal echocardiography study, which will be scheduled for tomorrow. In the meantime, the patient will be kept n.p.o. after midnight. Herson Quintero MD
--- NOTE | 2017-10-14 09:19 | CARD ---
APPROVED REPORT EKG Measurement Heart [id number] <Conclusion> Marked sinus bradycardia
--- NOTE | 2017-10-14 11:17 | CP.PCM.DIS ---
Provider - Provider Date of Admission: 10/10/17 02:27 Attending physician: Satish Drummond MD Primary care physician: NO PRIMARY CARE PROVIDER Consults: Cardiology- Dr. Quintero Surgery - Dr. Campos ID - Dr. Naranjo Time Spent in preparation of Discharge (in minutes): 30 Hospital Course - Lab Results Lab Results: Micro Results 10/10/17 03:05 Blood-Venous Blood Culture - Preliminary NO GROWTH AFTER 4 DAYS 10/10/17 02:50 Blood-Venous Blood Culture - Preliminary NO GROWTH AFTER 4 DAYS 10/10/17 13:00 Urine,Clean Catch Urine Culture - Final No Growth (<1,000 CFU/ML) Most Recent Lab Values WBC 9.2 10^3/ul (4.5-11.0) 10/13/17 06:00 RBC 4.26 10^6/uL (3.5-6.1) 10/13/17 06:00 Hgb 12.5 g/dL (14.0-18.0) L 10/13/17 06:00 Hct 38.8 % (42.0-52.0) L 10/13/17 06:00 MCV 91.1 fl (80.0-105.0) 10/13/17 06:00 MCH 29.3 pg (25.0-35.0) 10/13/17 06:00 MCHC 32.2 g/dl (31.0-37.0) 10/13/17 06:00 RDW 13.7 % (11.5-14.5) 10/13/17 06:00 Plt Count 231 10^3/uL (120.0-450.0) 10/13/17 06:00 MPV 9.2 fl (7.0-11.0) 10/13/17 06:00 Gran % 53.3 % (50.0-68.0) 10/13/17 06:00 Lymph % (Auto) 36.6 % (22.0-35.0) H 10/13/17 06:00 [place] % (Auto) 6.7 % (1.0-6.0) H 10/13/17 06:00 Eos % (Auto) 3.0 % (1.5-5.0) 10/13/17 06:00 Baso % (Auto) 0.4 % (0.0-3.0) 10/13/17 06:00 Gran # 4.89 (1.4-6.5) 10/13/17 06:00 Lymph # (Auto) 3.4 (1.2-3.4) 10/13/17 06:00 [place] # (Auto) 0.6 (0.1-0.6) 10/13/17 06:00 Eos # (Auto) 0.3 (0.0-0.7) 10/13/17 06:00 Baso # (Auto) 0.04 K/mm3 (0.0-2.0) 10/13/17 06:00 ESR 17 mm/hr (0.0-15.0) H 10/13/17 07:30 Sodium 144 mmol/L (132-148) 10/13/17 06:00 Potassium 3.9 mmol/L (3.6-5.0) 10/13/17 06:00 Chloride 109 mmol/L (98-107) H 10/13/17 06:00 Carbon Dioxide 26 mmol/L (21-33) 10/13/17 06:00 Anion Gap 13 (10-20) 10/13/17 06:00 BUN 8 mg/dL (7-21) 10/13/17 06:00 Creatinine 0.7 mg/dl (0.8-1.5) L 10/13/17 06:00 Est GFR ( Amer) > 60 10/13/17 06:00 Est GFR (Non-Af Amer) > 60 10/13/17 06:00 Random Glucose 86 mg/dL (70-110) 10/13/17 06:00 Calcium 8.3 mg/dL (8.4-10.5) L 10/13/17 06:00 Phosphorus 2.3 mg/dL (2.5-4.5) L 10/11/17 06:00 Magnesium 1.9 mg/dL (1.7-2.2) 10/11/17 06:00 Total Bilirubin < 0.1 mg/dL (0.2-1.3) L 10/13/17 06:00 AST 45 U/L (17-59) 10/13/17 06:00 ALT 56 U/L (7-56) 10/13/17 06:00 Alkaline Phosphatase 65 U/L (38-126) 10/13/17 06:00 C-Reactive Protein 34.00 mg/L (0.0-9.9) H 10/13/17 07:30 Total Protein 6.2 g/dL (5.8-8.3) 10/13/17 06:00 Albumin 3.0 g/dL (3.0-4.8) 10/13/17 06:00 Globulin 3.3 gm/dL 10/13/17 06:00 Albumin/Globulin Ratio 0.9 (1.1-1.8) L 10/13/17 06:00 Procalcitonin 0.43 NG/ML (0.19-0.49) 10/13/17 07:30 Free T4 1.08 ng/dL (0.78-2.19) 10/12/17 02:09 TSH 3rd Generation 0.72 mIU/mL (0.46-4.68) 10/12/17 02:09 Urine Color Yellow (YELLOW) 10/10/17 13:00 Urine Appearance Clear (CLEAR) 10/10/17 13:00 Urine pH 6.0 (4.7-8.0) 10/10/17 13:00 Ur Specific [place] 1.010 (1.005-1.035) 10/10/17 13:00 Urine Protein Negative mg/dL (<30 mg/dL) 10/10/17 13:00 Urine Glucose (UA) Negative mg/dL (NEGATIVE) 10/10/17 13:00 Urine Ketones Negative mg/dL (NEGATIVE) 10/10/17 13:00 Urine Blood Trace-intact (NEGATIVE) H 10/10/17 13:00 Urine Nitrate Negative (NEGATIVE) 10/10/17 13:00 Urine Bilirubin Negative (NEGATIVE) 10/10/17 13:00 Urine Urobilinogen 0.2 E.U./dL (<1 E.U./dL) 10/10/17 13:00 Ur Leukocyte Esterase Negative Dolly/uL (NEGATIVE) 10/10/17 13:00 Urine RBC 1 - 3 /hpf (0-2) 10/10/17 13:00 Urine WBC 0 - 2 /hpf (0-6) 10/10/17 13:00 Ur Epithelial Cells None /hpf (0-5) 10/10/17 13:00 Urine Bacteria Few (NEG) 10/10/17 13:00 Vancomycin Trough 17.3 ug/mL (5.0-10.0) H* 10/13/17 06:30 Hepatitis A IgM Ab Negative (NEGATIVE) 10/10/17 08:55 Hep Bs Antigen Negative (NEGATIVE) 10/10/17 08:55 Hep B Core IgM Ab Negative (NEGATIVE) 10/10/17 08:55 Hepatitis C Antibody Reactive (NEGATIVE) 10/10/17 08:55 HIV-1 Antibody TEST NOT PERFORMED 10/11/17 06:00 HIV-2 Antibody TEST NOT PERFORMED 10/11/17 06:00 HIV 1&2 Ag/Ab, 4th Gen Nonreactive (Nonreactive) 10/11/17 06:00 - Hospital Course Hospital Course: Patient is a 26yo male with history of IVDA (heroine/cocaine), ETOH abuse and HCV (known, untreated) that had presented to [facility] with c/o right wrist infection. He reported attempting to climb a fence during which time a nail punctured his right wrist and since then has become erythematous, swollen and more tender to palpation. He admitted to recent IV drug use (2hrs prior to presentation) in the left antecubital region. During the course of his hospitalization, he was started on IV antibiotics (cefepime and vancomycin). He was seen by surgery, infectious disease and cardiology. His cellulitis of the right hand improved. Surgery recommended no intervention and a hand specialist is not available. An echocardiogram was obtained which revealed EF 65%, Thickened aortic, mitral, tricuspid, and pulmonary valve, trace MR, mild TR, very minute echogenic mobile structure attached to aortic valve leaflets. 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 A JORGE was recommended. Blood and urine cultures had been negative. Patient was scheduled for JORGE on and workup was discussed with the patient, however on 10/13/2017 at approximately 4pm staff was made aware that the patient had eloped from the hospital. Prior to elopment, patient was made aware of the importance of further workup and diagnostic testing to rule out the potential for endocarditis. Physical exam: See progress note from 10/13/2017 for last documented physical examination Discharge Plan - Follow Up Plan Condition: FAIR Disposition: AGAINST MEDICAL ADVICE Instructions: Hepatitis C (DC), Drug Abuse and Drug Addiction (DC), Vaccines When You Have Hepatitis C, Cellulitis (Skin Infection), Adult (DC), Treatment for Hepatitis C Additional Instructions: Please follow up at [facility] for treatment of your hepatitis C. The number to the clinic is Referrals: [facility] at [facility] [Outside] PCP,NO [Primary Care Provider] -
== END 2017-10-13 16:03 | disposition left against medical advice (07) | DRG 901 ==
LOC: ED 01:51 → ERH 02:27 → 3RNO 04:35
PROVIDERS: ADMIT Internal Medicine; ATTEND Hospitalist
PROC: 3E0234Z Introduction of Serum, Toxoid and Vaccine into Muscle, Percutaneous Approach (ICD-10-PCS; principal; 2017-10-10)
DX: A41.9 Sepsis, unspecified organism (principal); L03.113 Cellulitis of right upper limb; B19.20 Unspecified viral hepatitis C without hepatic coma; F11.10 Opioid abuse, uncomplicated; F14.90 Cocaine use, unspecified, uncomplicated; F10.10 Alcohol abuse, uncomplicated; F17.210 Nicotine dependence, cigarettes, uncomplicated; I88.9 Nonspecific lymphadenitis, unspecified; S61.531A Puncture wound without foreign body of right wrist, initial encounter; R00.1 Bradycardia, unspecified; Z23 Encounter for immunization; R40.2412 Glasgow coma scale score 13-15, at arrival to emergency department

== ENCOUNTER 2018-01-22 03:52 | Inpatient (IN) | payer MEDICAID, OTHER ==
[2018-01-22 03:56] VITALS: BMI 28.2
[2018-01-22] MEDS ORDERED: Naloxone 0.4 mg/ml Inj (Adult) ONE (03:56)
[2018-01-22] MEDS ORDERED: Naloxone 0.4 mg/ml Inj (Adult) IVP STA ×3 (03:57→04:49)
[2018-01-22] MEDS ORDERED: Sodium Chloride 0.9% 1,000 ML IV STA ×2 (03:59→11:49)
--- NOTE | 2018-01-22 04:17 | ED PDOC ---
Arrival/HPI - General Chief Complaint: Substance Abuse Time Seen by Provider: 01/22/18 03:56 Historian: EMS EM Caveat: Altered Mental Status - History of Present Illness Narrative History of Present Illness (Text): 01/22/18 04:13 A 27 year old male with no significant past medical history presents to the emergency department brought it by EMS for drug overdose prior to arrival. EMS reports patient was found lying face down on the street by random witnesses who called 911. EMS reports administering 1 dose of 2 mg of Narcan prior to arrival. HPI and ROS are limited due to patient's altered mental status. 01/22/18 08:11 Time/Duration: Prior to Arrival Symptom Onset: Gradual Symptom Course: Unchanged Context: Street Past Medical History - Cardiac Hx Cardiac Disorders: No Hx Hypertension: No - Pulmonary Hx Tuberculosis: No - Neurological HX Cerebrovascular Accident: No Hx Seizures: No - HEENT Hx HEENT Disorder: No - Renal Hx Renal Disorder: No - Endocrine/Metabolic Hx Endocrine Disorders: No - Hematological/Oncological Hx Cancer: No - Integumentary Hx Dermatological Disorder: No - Musculoskeletal/Rheumatological Hx Musculoskeletal Disorders: No Hx Falls: No - Gastrointestinal Hx Gastrointestinal Disorders: No - Genitourinary/Gynecological Hx Sexually Transmitted Diseases: No - Psychiatric Hx Anxiety: Yes Hx Substance Use: Yes - Anesthesia Hx Anesthesia: No Hx Anesthesia Reactions: No Hx Malignant Hyperthermia: No - Suicidal Assessment Feels Threatened In Home Enviroment: No Family/Social History - Physician Review Nursing Documentation Reviewed: Yes Family/Social History: Unknown Family HX Smoking Status: Heavy Smoker > 10 Cigarettes Daily Hx Alcohol Use: Yes Hx Substance Use: Yes Allergies/Home Meds Allergies/Adverse Reactions: Allergies No Known Allergies Allergy (Verified 01/22/18 03:57) Review of Systems - Review of Systems Systems not reviewed;Unavailable: Altered Mental Status Physical Exam - Physical Exam Physical Exam Limitations: Altered Mental Status Vital Signs Reviewed: Yes Vital Signs Temp Pulse Resp BP Pulse Ox 01/22/18 04:05 98.0 F 87 16 139/86 94 L Temperature: Afebrile Blood Pressure: Normal Pulse: Bradycardic Respiratory Rate: Normal Appearance: Positive for: Other (+Arousable to stimuli) Pain Distress: None Mental Status: Positive for: Lethargic - Systems Exam Pupils: Present: Pinpoint Ears: Present: Normal, NORMAL TM Nose (Internal): No: Septal Hematoma Respiratory/Chest: No: Tender to Palpation (+nontended to palpation) Cardiovascular: Present: Regular Rate and Rhythm Abdomen: Present: Normal Bowel Sounds. No: Tenderness, Distention, Peritoneal Signs Back: No: CVA Tenderness, Midline Tenderness Lower Extremity: Present: Normal Inspection Neurological: Present: Motor Func Grossly Intact, Other (+able to move all 4 extremities ) Medical Decision Making ED Course and Treatment: 01/22/18 04:15 Impression: 27 year old male presents to the emergency department brought in by EMS for overdose. Likely opiate OD give pin point pupils and response to narcan in the field. Pt denies any pain on exam. Plan: -- CT of Cerival spine without contrast -- Head CT without contrast -- Acetaminophen -- Alcohol serum -- CMP -- Magnesium -- Salicylate -- CBC -- Narcan -- Zofran -- IV fluids -- Reassess and disposition Prior Visits: Notes and results from previous visits were reviewed. Progress Notes: 01/22/18 04:15 EKG: Ordered, reviewed, and independently interpreted the EKG. Rate : 83 BPM Rhythm : NSR Interpretation : No ST-segment elevations or depressions. 01/22/18 04:55 0.8 narcan w/ patient awakening patient states no pain once again, normal neuro exam patient becoming less responsive w/ pinpoint pupils 0.8 narcan given again with patient awakening Given response to 0.8 narcan, will start on narcan drip Case discussed with Dr. Drummond, who is aware the patient is in the emergency room and accepts patient for admission in ICU. Ct pending, admitting team made aware. - Lab Interpretations Lab Results: 01/22/18 04:03 01/22/18 04:03 Lab Results 01/22/18 04:14: POC Glucose (mg/dL) 195 H 01/22/18 04:03: Phosphorus 7.3 H 01/22/18 04:03: Alcohol, Quantitative 189 H 01/22/18 04:03: Salicylates < 1 L, Acetaminophen < 10.0 L 01/22/18 04:03: Sodium 143, Potassium 3.3 L, Chloride 104, Carbon Dioxide 23, Anion Gap 20, BUN 23 H, Creatinine 1.2, Est GFR ( Amer) > 60, Est GFR ( Non-Af Amer) > 60, Random Glucose 208 H, Calcium 8.4, Magnesium 2.5 H, Total Bilirubin 0.3, AST 144 H D, ALT 205 H, Alkaline Phosphatase 81, Total Protein 7.4, Albumin 4.4, Globulin 3.0, Albumin/Globulin Ratio 1.5 01/22/18 04:03: WBC 16.3 H D, RBC 4.81, Hgb 14.8 D, Hct 44.5, MCV 92.5, MCH 30.8, MCHC 33.3, RDW 13.5, Plt Count 265, MPV 9.3, Gran % 39.0 L, Lymph % (Auto ) 54.2 H, [place] % (Auto) 6.0, Eos % (Auto) 0.6 L, Baso % (Auto) 0.2, Gran # 6.34 , Lymph # (Auto) 8.8 H, [place] # (Auto) 1.0 H, Eos # (Auto) 0.1, Baso # (Auto) 0.03 - RAD Interpretation Radiology Orders: 01/22/18 03:58 CERVICAL SPINE W/O CONTRAST [CT] Stat HEAD W/O CONTRAST [CT] Stat - Medication Orders Current Medication Orders: Folic Acid (Folic Acid) 1 mg PO DAILY OLEKSANDR Naloxone HCl 2.4 mg/ Sodium (Chloride) 250 mls @ 62.5 mls/hr IV .Q4H ONE PRN Reason: 0.6 MG/HR Stop: 01/22/18 08:46 Last Admin: 01/22/18 05:12 Dose: 62.5 mls/hr eMAR Start Stop Document 01/22/18 05:12 RD (Rec: 01/22/18 05:14 RD [id number]) Intravenous Solution Start Date 01/22/18 Start Time 05:14 Multivitamins/Vitamin C 10 ml/Thiamine HCl 100 mg/ Folic Acid 1 mg/ Sodium Chloride 1,011.2 mls @ 100 mls/hr IV .Q10H7M ONE Stop: 01/22/18 16:01 Piperacillin Sod/Tazobactam Sod (Zosyn 3.375 In Ns 100ml) 100 mls @ 200 mls/hr IVPB Q6 OLEKSANDR PRN Reason: Protocol Stop: 01/22/18 12:29 Lorazepam (Ativan) 1 mg IVP Q4H PRN; Protocol PRN Reason: Symptoms of alcohol withdrawl Multivitamins (Thera Tab) 1 tab PO DAILY OLEKSANDR Thiamine HCl (Vitamin B1 Tab) 100 mg PO DAILY OLEKSANDR Discontinued Medications Sodium Chloride (Sodium Chloride 0.9%) 1,000 mls @ 999 mls/hr IV .Q1H1M STA Stop: 01/22/18 04:59 Last Admin: 01/22/18 04:46 Dose: 999 mls/hr eMAR Start Stop Document 01/22/18 04:46 RD (Rec: 01/22/18 04:46 RD [facility] [id number]) Intravenous Solution Start Date 01/22/18 Start Time 04:46 End Date 01/22/18 End time 05:46 Total Infusion Time 60 Potassium Chloride (Potassium Chloride 20 Meq/100 Ml) 20 meq in 100 mls @ 50 mls/hr IVPB ONCE ONE Stop: 01/22/18 07:21 Last Admin: 01/22/18 05:49 Dose: 50 mls/hr eMAR Start Stop Document 01/22/18 05:49 AD (Rec: 01/22/18 05:49 AD [id number]) Intravenous Solution Start Date 01/22/18 Start Time 05:49 Naloxone HCl (Narcan) 0.4 mg IVP STAT STA Stop: 01/22/18 03:58 Last Admin: 01/22/18 04:05 Dose: 0.4 mg IVP Administration Document 01/22/18 04:05 RD (Rec: 01/22/18 04:48 [facility] [place][id number]) Charges for Administration # of IVP Administrations 1 Naloxone HCl (Narcan) 0.4 mg IVP STAT STA Stop: 01/22/18 04:16 Last Admin: 01/22/18 04:15 Dose: 0.4 mg IVP Administration Document 01/22/18 04:15 RD (Rec: 01/22/18 04:50 RD [facility] [id number]) Charges for Administration # of IVP Administrations 1 Naloxone HCl (Narcan) 0.8 mg IVP STAT STA Stop: 01/22/18 04:50 Last Admin: 01/22/18 04:45 Dose: 0.8 mg IVP Administration Document 01/22/18 04:45 RD (Rec: 01/22/18 04:51 RD [facility] [id number]) Charges for Administration # of IVP Administrations 1 Ondansetron HCl (Zofran Inj) 4 mg IVP STAT STA Stop: 01/22/18 03:59 Last Admin: 01/22/18 04:00 Dose: 4 mg IVP Administration Document 01/22/18 04:00 RD (Rec: 01/22/18 04:47 RD [facility] [id number]) Charges for Administration # of IVP Administrations 1 Potassium Chloride (Potassium Chloride Oral Soln) 40 meq PO ONCE ONE Stop: 01/22/18 08:07 - Scribe Statement The provider has reviewed the documentation as recorded by the Niels Valles All medical record entries made by the Niels were at my direction and personally dictated by me. I have reviewed the chart and agree that the record accurately reflects my personal performance of the history, physical exam, medical decision making, and the department course for this patient. I have also personally directed, reviewed, and agree with the discharge instructions and disposition. Disposition/Present on Arrival - Present on Arrival Any Indicators Present on Arrival: No History of DVT/PE: No History of Uncontrolled Diabetes: No Urinary Catheter: No History of Decub. Ulcer: No History Surgical Site Infection Following: None - Disposition Have Diagnosis and Disposition been Completed?: Yes Diagnosis: Substance abuse Disposition: HOSPITALIZED Disposition Time: 04:55 Condition: FAIR
[2018-01-22 04:43] LABS: HEMOGLOBIN 14.8 g/dL (14.0-18.0); MEAN CELL VOLUME 92.5 fl (80.0-105.0); MEAN CORPUSCULAR HEMOGLOBIN 30.8 pg (25.0-35.0); MEAN CORPUSCULAR HGB CONC 33.3 g/dl (31.0-37.0); MEAN PLATELET VOLUME 9.3 fl (7.0-11.0); RBC 4.81 10^6/uL (3.5-6.1); RED CELL DISTRIBUTION WIDTH 13.5 % (11.5-14.5); WHITE BLOOD COUNT 16.3 10^3/ul (4.5-11.0)
[2018-01-22 04:44] LABS: BASO # 0.03 K/mm3 (0.0-2.0); BASO % 0.2 % (0.0-3.0); EOS # 0.1 (0.0-0.7); EOS % 0.6 % (1.5-5.0); GRAN # 6.34 (1.4-6.5); LYMPH # 8.8 (1.2-3.4); LYMPH % 54.2 % (22.0-35.0)
[2018-01-22 04:47] LABS: ALB/GLOB RATIO 1.5 (1.1-1.8); ALBUMIN 4.4 g/dL (3.0-4.8); ALT/SGPT 205 U/L (7-56); AST/SGOT 144 U/L (17-59); BLOOD UREA NITROGEN 23 mg/dL (7-21); CALCIUM 8.4 mg/dL (8.4-10.5); GFR NON-AFRICAN AMERICAN > 60
[2018-01-22] MEDS ORDERED: Naloxone 2.4 MG in Sodium Chloride 0.9% 244 ML IV ONE (04:47)
[2018-01-22 04:48] LABS: ACETAMINOPHEN < 10.0 ug/ml (10.0-20.0); SALICYLATE < 1 mg/dL (2.0-20.0)
--- NOTE | 2018-01-22 05:12 | CP.PCM.HP ---
<Juan Kent R - Last Filed: 01/22/18 05:57> History of Present Illness - History of Present Illness History of Present Illness: PGY-2 ICU H&P for Dr Rubi Drummond HPI: 27 yo M with PMH of IVDA (heroine/cocaine), Opioid use disorder, Bipolar disorder, ETOH use disorder, and HVC (known, untreated) was brought to ED by EMS as he was found lying face down on the street by random witnesses who called 911. EMS reports administering 1 dose or 2 mg of Narcan prior to arrival. HPI and ROS are limited due to patient's altered mental status. Past medical history is collected from chart review. Also with history of prior elopement. PMH: HCV, known, untreated PSH: Denies FMH: Denies Social: Patient admits to IVDA (cocaine and heroine), patient denies alcohol abuse, patient smokes 1 pack a day of tobacco. 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 Allergy: NKDA Home meds: seroquel 50mg po hs Present on Admission - Present on Admission Any Indicators Present on Admission: No Review of Systems - Review of Systems Systems not reviewed;Unavailable: Altered Mental Status Past Patient History - Past Medical History & Family History Past Medical History?: No - Past Social History Smoking Status: Heavy Smoker > 10 Cigarettes Daily - CARDIAC Hx Cardiac Disorders: No Hx Hypertension: No - PULMONARY Hx Tuberculosis: No - NEUROLOGICAL HX Cerebrovascular Accident: No Hx Seizures: No - HEENT Hx HEENT Problems: No - RENAL Hx Chronic Kidney Disease: No - ENDOCRINE/METABOLIC Hx Endocrine Disorders: No - HEMATOLOGICAL/ONCOLOGICAL Hx Cancer: No - INTEGUMENTARY Hx Dermatological Problems: No - MUSCULOSKELETAL/RHEUMATOLOGICAL Hx Musculoskeletal Disorders: No Hx Falls: No - GASTROINTESTINAL Hx Gastrointestinal Disorders: No - GENITOURINARY/GYNECOLOGICAL Hx Sexually Transmitted Disorders: No - PSYCHIATRIC Hx Anxiety: Yes Hx Substance Use: Yes - SURGICAL HISTORY Hx Surgeries: No - ANESTHESIA Hx Anesthesia: No Hx Anesthesia Reactions: No Hx Malignant Hyperthermia: No Meds Allergies/Adverse Reactions: Allergies Allergy/AdvReac Type Severity Reaction Status Date / Time No Known Allergies Allergy Verified 01/22/18 03:57 Physical Exam - Constitutional Appears: No Acute Distress, Unkempt - Head Exam Head Exam: ATRAUMATIC, NORMAL INSPECTION - Eye Exam Eye Exam: EOMI Pupil Exam: Mydriatic, PERRL - ENT Exam ENT Exam: Mucous Membranes Dry - Neck Exam Neck exam: Positive for: Normal Inspection - Respiratory Exam Respiratory Exam: Rhonchi, NORMAL BREATHING PATTERN. absent: Chest Wall Tenderness, Decreased Breath Sounds, Clear to Auscultation Bilateral, Respiratory Distress - Cardiovascular Exam Cardiovascular Exam: REGULAR RHYTHM, +S1, +S2. absent: Bradycardia, Tachycardia , JVD, Systolic Murmur - GI/Abdominal Exam GI & Abdominal Exam: Normal Bowel Sounds, Soft. absent: Distended, Firm, Guarding, Tenderness - Extremities Exam Extremities exam: Positive for: normal capillary refill, normal inspection, pedal pulses present. Negative for: calf tenderness, pedal edema - Neurological Exam Neurological exam: Altered Additional comments: Very drowsy but able to follow some verbal commands - Skin Skin Exam: Intact, Normal Color, Warm Results - Vital Signs Recent Vital Signs: Last Vital Signs Temp 98.0 F 01/22/18 04:05 Pulse 87 01/22/18 04:05 Resp 16 01/22/18 04:05 BP 139/86 01/22/18 04:05 Pulse Ox 94 L 01/22/18 04:05 - Labs Result Diagrams: 01/22/18 04:03 01/22/18 04:03 Labs: Laboratory Results - last 24 hr 01/22/18 01/22/18 01/22/18 04:03 04:03 04:03 WBC 16.3 H D RBC 4.81 Hgb 14.8 D Hct 44.5 MCV 92.5 MCH 30.8 MCHC 33.3 RDW 13.5 Plt Count 265 MPV 9.3 Gran % 39.0 L Lymph % (Auto) 54.2 H [place] % (Auto) 6.0 Eos % (Auto) 0.6 L Baso % (Auto) 0.2 Gran # 6.34 Lymph # (Auto) 8.8 H [place] # (Auto) 1.0 H Eos # (Auto) 0.1 Baso # (Auto) 0.03 Sodium 143 Potassium 3.3 L Chloride 104 Carbon Dioxide 23 Anion Gap 20 BUN 23 H Creatinine 1.2 Est GFR ( Amer) > 60 Est GFR (Non-Af Amer) > 60 POC Glucose (mg/dL) Random Glucose 208 H Calcium 8.4 Magnesium 2.5 H Total Bilirubin 0.3 AST 144 H D ALT 205 H Alkaline Phosphatase 81 Total Protein 7.4 Albumin 4.4 Globulin 3.0 Albumin/Globulin Ratio 1.5 Salicylates < 1 L Acetaminophen < 10.0 L 01/22/18 04:14 WBC RBC Hgb Hct MCV MCH MCHC RDW Plt Count MPV Gran % Lymph % (Auto) [place] % (Auto) Eos % (Auto) Baso % (Auto) Gran # Lymph # (Auto) [place] # (Auto) Eos # (Auto) Baso # (Auto) Sodium Potassium Chloride Carbon Dioxide Anion Gap BUN Creatinine Est GFR ( Amer) Est GFR (Non-Af Amer) POC Glucose (mg/dL) 195 H Random Glucose Calcium Magnesium Total Bilirubin AST ALT Alkaline Phosphatase Total Protein Albumin Globulin Albumin/Globulin Ratio Salicylates Acetaminophen Assessment & Plan - Assessment and Plan (Free Text) Plan: 27 yo M with PMH of IVDA (heroine/cocaine), Opioid use disorder, Bipolar disorder, ETOH use disorder, and HVC (known, untreated) was brought to ED by EMS as he was found lying face down on the street: Drug Overdose Likely opioid given hx and presentation but also with elevated serum alcohol level No signs of respiratory depression - breathing well on ventimask Continue naloxone drip IV 0.6mg/hr F/U UDS F/U ABG F/U Head CT w/o contrast: F/U Cervical Spine CT w/o contrast: EtOH Intoxication Alcohol level on admission 189 CIWA assessment Q4H Seizure precautions, Fall precautions - moderate protocol Ativan 1mg IVP Q2H PRN for alcohol withdrawal symptoms Banana bag IV 100cc/hr After banana bag start daily thiamine 100mg po, folic acid 1mg po and MV 1 tab po Elevated LFTs Likely 2/2 to alcohol use disorder, patient also with hx of Hep C Trend Leukocytosis WBC 16.3 on admission F/U Blood Cx, Urine Cx F/U Procalcitonin F/U CXR Portable F/U UA Start Zosyn 3.375g IVPB Q6H for empiric coverage Elevated Glucose No hx of DM2 F/U HgbA1c F/U UA Hepatitis C, Untreated Patient will need to follow-up with clinic at [facility] - phone number is [phone] Bipolar disorder Home medication includes Quetiapine 50mg po hs Opioid use disorder Rehab attempt in 09/2017 Prophylaxis NPO for now until patient more alert <Maria E Drummond - Last Filed: 01/22/18 06:19> Results - Vital Signs Recent Vital Signs: Last Vital Signs Temp 98.0 F 01/22/18 04:05 Pulse 87 01/22/18 04:05 Resp 16 01/22/18 04:05 BP 139/86 01/22/18 04:05 Pulse Ox 94 L 01/22/18 04:05 - Labs Result Diagrams: 01/22/18 04:03 01/22/18 04:03
[2018-01-22] MEDS ORDERED: Multivitamin (MVI) 10 ML, Thiamine 100 MG, Folic Acid 1 MG in Sodium Chloride 0.9% 1,00... IV ONE ×2 (05:55→12:48)
[2018-01-22] MEDS ORDERED: Potassium Chloride 40 mEq/30 ml LIQ UD PO ONE (08:06)
[2018-01-22] MEDS: Piperacillin/Tazobact 3.375 gm 100 ML IVPB SCH ×2 (08:40→14:00)
--- NOTE | 2018-01-22 08:51 | RAD ---
HISTORY: r/o pnemonia COMPARISON: Chest x-ray performed 10/10/17 TECHNIQUE: Chest, one view. FINDINGS: LUNGS: Moderate bilateral infiltrates may reflect pneumonia or edema. Correlate clinically. Please note that chest x-ray has limited sensitivity for the detection of pulmonary masses. PLEURA: No significant pleural effusion identified. No definite pneumothorax . CARDIOVASCULAR: The cardiomediastinal silhouette appears within normal limits of size. OSSEOUS STRUCTURES: No acute osseous abnormality identified. VISUALIZED UPPER ABDOMEN: Unremarkable. OTHER FINDINGS: None. IMPRESSION: Moderate bilateral infiltrates with mid to upper lobe predominance may reflect pneumonia or edema. Correlate clinically.
[2018-01-22 09:19] LABS: CK MB% 0.6 % (2.5-3.0); CK-MB 7.9 ng/mL (0.0-3.6)
--- NOTE | 2018-01-22 09:30 | CT ---
Date of service: 01/22/18 CT cervical spine without IV contrast Indication: Face down OD Comparison: None available Technique: Axial computed tomography images were obtained of the cervical spine without the use of intravenous contrast. Coronal and sagittal reformatted images were created and reviewed. This CT exam was performed using 1 or more of the following dose reduction techniques: Automated exposure control, adjustment of the MAA and/or kV according to patient size, and/or use of iterative reconstruction technique. Radiation dose: Total exam DLP = 594.13 mGy-cm. Findings: Straightening of the normal cervical lordosis may be related to muscle spasm or positioning. There is no evidence of acute fracture or subluxation. There is preserved alignment, vertebral body height, intervertebral disc spaces. The prevertebral soft tissues and spinolaminar lines appear intact. The lateral masses are preserved. The dens tip is intact. There is proper alignment of the lateral masses of C1 with the C2 vertebral body. Included portions of the thyroid gland appear unremarkable. Included portions of the lung apices demonstrate bilateral dense pulmonary infiltrates. Nonspecific esophageal wall thickening. Intraluminal densities noted within the esophagus. Correlate clinically for delayed emptying versus gastroesophageal reflux. Impression: Straightening of the normal cervical lordosis may be related to muscle spasm or positioning. No evidence of acute fracture or subluxation. Dense bilateral pulmonary infiltrates may reflect edema or pneumonia. Correlate clinically. Nonspecific esophageal wall thickening with evidence of gastroesophageal reflux versus delayed emptying. Correlate clinically. Preliminary impression was provided by virtual radiologic.
--- NOTE | 2018-01-22 09:57 | CT ---
Date of service: 01/22/2018 PROCEDURE: CT HEAD WITHOUT CONTRAST. HISTORY: found face down od COMPARISON: None available. TECHNIQUE: Axial computed tomography images were obtained through the head/brain without intravenous contrast. Radiation dose: Total exam DLP = 853.83 mGy-cm. This CT exam was performed using one or more of the following dose reduction techniques: Automated exposure control, adjustment of the mA and/or kV according to patient size, and/or use of iterative reconstruction technique. FINDINGS: HEMORRHAGE: No intracranial hemorrhage. BRAIN: No mass effect or edema. No atrophy or chronic microvascular ischemic changes.Please note that MRI with diffusion imaging is more sensitive in the detection of acute ischemic event. VENTRICLES: No hydrocephalus. CALVARIUM: Unremarkable. PARANASAL SINUSES: Fluid level within the left maxillary sinus. MASTOID AIR CELLS: Unremarkable as visualized. No inflammatory changes. OTHER FINDINGS: None. IMPRESSION: No acute intracranial pathology identified. Findings consistent with moderate left maxillary sinusitis with air-fluid level. Preliminary impression was provided by virtual radiologic.
[2018-01-22] MEDS ORDERED: guaiFENesin 100 mg/5 ml Syrup UD PO PRN (12:31)
--- NOTE | 2018-01-22 12:32 | CP.CCUPN ---
<Lu Mcnamara - Last Filed: 01/22/18 11:54> CCU Subjective - Physician Review Events Since Last Encounter (Free Text): 01/22/18 11:54 Patient seen and examined at bedside. Patient admitted overnight for drug overdose, started on narcan drip, admitted to ICU for airway protection. This morning, patient is oriented x4, sleepy, denies nausea, vomiting, sob, abdominal pain, urinary symptoms, leg swelling, cp. Reports ongoing productive yellowish cough for past 2 weeks, denies fevers, chills, hemoptysis. CCU Objective - Vital Signs / Intake & Output Vital Signs (Last 4 hours): Vital Signs Pulse Resp BP Pulse Ox 01/22/18 11:10 82 19 97 01/22/18 11:00 73 17 101/47 L 95 01/22/18 10:50 72 18 96 01/22/18 10:40 77 23 96 01/22/18 10:30 77 28 H 97 01/22/18 10:20 79 19 97 01/22/18 10:10 88 25 H 97 01/22/18 10:00 83 22 114/57 L 96 01/22/18 09:50 72 26 H 96 01/22/18 09:40 72 17 95 01/22/18 09:30 74 22 93 L 01/22/18 09:20 85 22 100 01/22/18 09:10 76 21 100 01/22/18 09:00 74 20 114/68 100 01/22/18 08:59 75 20 100 - Physical Exam Pupils: Positive for: PERRL, Pinpoint Mouth: Positive for: Moist Mucous Membranes Respiratory/Chest: Positive for: Good Air Exchange, Other (coarse breath sounds b/l). Negative for: Respiratory Distress, Accessory Muscle Use, Wheezes Cardiovascular: Positive for: Regular Rate and Rhythm Abdomen: Positive for: Normal Bowel Sounds. Negative for: Tenderness, Distention, Peritoneal Signs Back: Negative for: CVA Tenderness, Midline Tenderness Lower Extremity: Positive for: Normal Inspection Neurological: Positive for: GCS=15, CN II-XII Intact, Speech Normal, Motor Func Grossly Intact Skin: Positive for: Warm, Dry, Normal Color Psychiatric: Positive for: Alert, Oriented x 3 Other physical findings (Free Text): sleepy - Medications Active Medications: Active Medications Generic Name Dose Route Start Last Admin Trade Name Freq PRN Reason Stop Dose Admin Folic Acid 1 mg 01/23/18 10:00 Folic Acid PO DAILY EDYTA Multivitamins/Vitamin C 10 ml/ 1,011.2 mls @ 100 mls/hr 01/22/18 05:55 08:00 Thiamine HCl 100 mg/ Folic IV 01/22/18 16:01 100 mls/hr Acid 1 mg/ Sodium Chloride .Q10H7M ONE Administration Piperacillin Sod/Tazobactam Sod 100 mls @ 200 mls/hr 01/22/18 06:00 01/22/18 08:40 Zosyn 3.375 In Ns 100ml IVPB 01/22/18 12:29 200 mls/hr Q6 EDYTA Administration Protocol Sodium Chloride 1,000 mls @ 999 mls/hr 01/22/18 11:49 Sodium Chloride 0.9% IV 01/22/18 12:49 .Q1H1M STA Lorazepam 1 mg 01/22/18 05:54 Ativan IVP Q4H PRN Symptoms of alcohol withdrawl Protocol Multivitamins 1 tab 01/23/18 10:00 Thera Tab PO DAILY EDYTA Thiamine HCl 100 mg 01/23/18 10:00 Vitamin B1 Tab PO DAILY EDYTA - Patient Studies Lab Studies: Lab Studies 01/22/18 Range/Units 08:42 Total Creatine Kinase 1263 H (35-230) U/L CK-MB (CK-2) 7.9 H (0.0-3.6) ng/mL CK-MB (CK-2) % 0.6 L (2.5-3.0) % Laboratory Results - last 24 hr 01/22/18 08:42 Total Creatine Kinase 1263 H CK-MB (CK-2) 7.9 H CK-MB (CK-2) % 0.6 L EKG/Cardiology Studies: Cardiology / EKG Studies 01/22/18 EKG [ELECTROCARDIOGRAM] Routine Comment: Reason For Exam: found obtunded Review of Systems - Review of Systems All systems: reviewed and no additional remarkable complaints except Review of Systems: as per hPI Assessment/Plan - Assessment and Plan (Free Text) Assessment: 27 year old male with PMH IVDA (heroine/cocaine), Opioid use disorder, Bipolar disorder, ETOH use disorder, and Hep C virus (known, untreated), presents for drug overdose (likely heroin), requiring Narcan drip. Off drip now, still remains drowsy, will monitor patient on NC: Neuro: AAOx3 today. Mildly drowsy. No change in mental status. Seizure precautions, neuro checks. Cont to monitor. - CT head and cervical spine negative - drugs overdose. follow UDS. - CIWA protocol. Ativan prn. on MVT, thiamine, folic acid po daily. currently on banana bag. CV: Maintain MAP>65. Hemodynamically stable. Cont to monitor. Pulm: On NC. Saturating well. Maintain O2 sat>95% Hx of tobacco use. Duonebs edyta and prn. nicotine patch. GI: Nursing bedside swallow screen. Reglan prn. Soft heart healthy diet. Renal : BUN/Cr 23/1.2 (baseline Cr 0.8). SUSANNE. CPK elevated, rhabdomyolysis, given 1L NS bolus, started IVF at 125/hr. hypokalemic, repleted. Replace lytes, maintain euvolemia. Continue to monitor. ID: Afebrile, mild leukocytosis. Moderate b/l infiltrates, mid to upper lobes. CAP. On Zosyn. f/u procal. Endo: Maintain euglycemia. Heme: Stable. Cont to monitor. DVT ppx - SCD GI ppx - Protonix Case seen and discussed with Dr Alberto Drummond. <Alberto Drummond - Last Filed: 01/22/18 16:26> CCU Objective - Vital Signs / Intake & Output Vital Signs (Last 4 hours): Vital Signs Temp Pulse Resp BP Pulse Ox 01/22/18 16:10 73 22 98 01/22/18 16:00 98 F 70 20 123/66 98 01/22/18 15:50 73 98 01/22/18 15:40 77 21 100 01/22/18 15:30 67 19 100 01/22/18 15:20 67 22 99 01/22/18 15:10 76 24 99 01/22/18 15:00 64 20 121/65 100 01/22/18 14:50 74 100 01/22/18 14:40 67 23 100 01/22/18 14:30 69 23 99 01/22/18 14:20 75 19 97 01/22/18 14:10 74 20 96 01/22/18 14:00 62 21 123/65 99 01/22/18 13:50 71 18 99 01/22/18 13:40 84 26 H 99 01/22/18 13:30 79 29 H 98 01/22/18 13:24 130/90 97 01/22/18 13:20 96 01/22/18 13:10 64 18 98 01/22/18 13:00 70 20 99 01/22/18 12:50 75 21 98 01/22/18 12:40 69 20 97 01/22/18 12:30 65 51 H 99 Intake and Output (Last 8hrs): Intake & Output 01/22/18 01/22/18 01/22/18 06:59 14:59 22:59 Weight 175 lb Other: Voiding Method Urinal - Medications Active Medications: Active Medications Generic Name Dose Route Start Last Admin Trade Name Freq PRN Reason Stop Dose Admin Albuterol/Ipratropium 3 ml 01/22/18 14:00 01/22/18 15:21 Duoneb 3 Mg/0.5 Mg (3 Ml) Ud IH 3 ml [id number] EDYTA Administration Albuterol/Ipratropium 3 ml 01/22/18 12:33 Duoneb 3 Mg/0.5 Mg (3 Ml) Ud IH [id number] PRN Shortness of Breath Folic Acid 1 mg 01/23/18 10:00 Folic Acid PO DAILY [facility] Guaifenesin 100 mg 01/22/18 12:31 Robitussin PO Q4H PRN Cough Lorazepam 1 mg 01/22/18 05:54 Ativan IVP Q4H PRN Symptoms of alcohol withdrawl Protocol Metoclopramide HCl 5 mg 01/22/18 16:30 Reglan IVP ACHS [facility] Multivitamins 1 tab 01/23/18 10:00 Thera Tab PO DAILY [facility] Nicotine 1 patch 01/22/18 12:45 01/22/18 13:38 Nicoderm Cq TD Not Given DAILY [facility] Pantoprazole Sodium 40 mg 01/23/18 10:00 Protonix Inj IVP DAILY [facility] Thiamine HCl 100 mg 01/23/18 10:00 Vitamin B1 Tab PO DAILY EDYTA - Patient Studies Lab Studies: Lab Studies 01/22/18 01/22/18 Range/Units 08:42 06:00 Total Creatine Kinase 1263 H (35-230) U/L CK-MB (CK-2) 7.9 H (0.0-3.6) ng/mL CK-MB (CK-2) % 0.6 L (2.5-3.0) % Procalcitonin 0.06 L (0.19-0.49) NG/ML Laboratory Results - last 24 hr 01/22/18 01/22/18 06:00 08:42 Total Creatine Kinase 1263 H CK-MB (CK-2) 7.9 H CK-MB (CK-2) % 0.6 L Procalcitonin 0.06 L EKG/Cardiology Studies: Cardiology / EKG Studies 01/22/18 EKG [ELECTROCARDIOGRAM] Routine Comment: Reason For Exam: found obtunded Critical Care Progress Note - Nutrition Nutrition: Nutrition Category Date Time Status Heart Healthy Diet [DIET] Diets 01/22/18 Lunch Active Addendum Addendum: 01/22/18 16:25 ICU Attending Addendum: Patient seen and examined. Case reviewed on round with housestaff. Agree with resident note above with the following additions/exceptions: 27M with [facility] IVDA (heroin) and other polysubstance found unresponsive by EMS, responded to narcan and placed on narcan drip. We monitored him throughout the day, he was taken off Narcan drip approx. 0900am and has been much more awake and alert as the day went on. Tolerating diet. No signs of resp distress. Able to maintain his own airway. He ultimately needs social work and drug rehab however he is not interested at all at this time. In fact he is requesting to leave AMA. He is competent to make his own decisions and it not a candidate to be retrained against his wishes. I spent time advising him to stay and offering support however he continued to refuse. Will offer rx for abx (Levaquin) as his CXR showed possible infiltrate, maybe aspiration. Rest of care as noted above. Alberto Drummond MD Signal Maintenance Technician
[2018-01-22] MEDS ORDERED: Albuterol-Ipratrop 3 mg / 0.5 (3 ml) UD IH PRN (12:33)
[2018-01-22] MEDS ORDERED: Albuterol-Ipratrop 3 mg / 0.5 (3 ml) UD IH SCH (14:00)
[2018-01-22 14:48] VITALS: TEMP 98
[2018-01-22 16:17] VITALS: BP 123/66; PULSE 73; RESP 22; O2SAT 98
--- NOTE | 2018-01-22 20:49 | CP.PCM.DIS ---
<GiulianaGene - Last Filed: 01/22/18 20:40> Provider - Provider Date of Admission: 01/22/18 04:56 Attending physician: Kimi Shepard, Primary care physician: No PCP Consults: Critical Care - Dr. Drummond Time Spent in preparation of Discharge (in minutes): 45 Hospital Course - Lab Results Lab Results: Most Recent Lab Values WBC 16.3 10^3/ul (4.5-11.0) H D 01/22/18 04:03 RBC 4.81 10^6/uL (3.5-6.1) 01/22/18 04:03 Hgb 14.8 g/dL (14.0-18.0) D 01/22/18 04:03 Hct 44.5 % (42.0-52.0) 01/22/18 04:03 MCV 92.5 fl (80.0-105.0) 01/22/18 04:03 MCH 30.8 pg (25.0-35.0) 01/22/18 04:03 MCHC 33.3 g/dl (31.0-37.0) 01/22/18 04:03 RDW 13.5 % (11.5-14.5) 01/22/18 04:03 Plt Count 265 10^3/uL (120.0-450.0) 01/22/18 04:03 MPV 9.3 fl (7.0-11.0) 01/22/18 04:03 Gran % 39.0 % (50.0-68.0) L 01/22/18 04:03 Lymph % (Auto) 54.2 % (22.0-35.0) H 01/22/18 04:03 [place] % (Auto) 6.0 % (1.0-6.0) 01/22/18 04:03 Eos % (Auto) 0.6 % (1.5-5.0) L 01/22/18 04:03 Baso % (Auto) 0.2 % (0.0-3.0) 01/22/18 04:03 Gran # 6.34 (1.4-6.5) 01/22/18 04:03 Lymph # (Auto) 8.8 (1.2-3.4) H 01/22/18 04:03 [place] # (Auto) 1.0 (0.1-0.6) H 01/22/18 04:03 Eos # (Auto) 0.1 (0.0-0.7) 01/22/18 04:03 Baso # (Auto) 0.03 K/mm3 (0.0-2.0) 01/22/18 04:03 Sodium 143 mmol/L (132-148) 01/22/18 04:03 Potassium 3.3 mmol/L (3.6-5.0) L 01/22/18 04:03 Chloride 104 mmol/L (98-107) 01/22/18 04:03 Carbon Dioxide 23 mmol/L (21-33) 01/22/18 04:03 Anion Gap 20 (10-20) 01/22/18 04:03 BUN 23 mg/dL (7-21) H 01/22/18 04:03 Creatinine 1.2 mg/dl (0.8-1.5) 01/22/18 04:03 Est GFR ( Amer) > 60 01/22/18 04:03 Est GFR (Non-Af Amer) > 60 01/22/18 04:03 POC Glucose (mg/dL) 195 mg/dL (65-110) H 01/22/18 04:14 Random Glucose 208 mg/dL (70-110) H 01/22/18 04:03 Calcium 8.4 mg/dL (8.4-10.5) 01/22/18 04:03 Phosphorus 7.3 mg/dL (2.5-4.5) H 01/22/18 04:03 Magnesium 2.5 mg/dL (1.7-2.2) H 01/22/18 04:03 Total Bilirubin 0.3 mg/dL (0.2-1.3) 01/22/18 04:03 AST 144 U/L (17-59) H D 01/22/18 04:03 ALT 205 U/L (7-56) H 01/22/18 04:03 Alkaline Phosphatase 81 U/L (38-126) 01/22/18 04:03 Total Creatine Kinase 1263 U/L (35-230) H 01/22/18 08:42 CK-MB (CK-2) 7.9 ng/mL (0.0-3.6) H 01/22/18 08:42 CK-MB (CK-2) % 0.6 % (2.5-3.0) L 01/22/18 08:42 Total Protein 7.4 g/dL (5.8-8.3) 01/22/18 04:03 Albumin 4.4 g/dL (3.0-4.8) 01/22/18 04:03 Globulin 3.0 gm/dL 01/22/18 04:03 Albumin/Globulin Ratio 1.5 (1.1-1.8) 01/22/18 04:03 Procalcitonin 0.06 NG/ML (0.19-0.49) L 01/22/18 06:00 Salicylates < 1 mg/dL (2.0-20.0) L 01/22/18 04:03 Acetaminophen < 10.0 ug/ml (10.0-20.0) L 01/22/18 04:03 Alcohol, Quantitative 189 mg/dL (0-10) H 01/22/18 04:03 - Hospital Course Hospital Course: Gene Giordano DO PGY-1, Fun House Operator Medicine Discharge Summary 27 yo M with PMH of IVDA (heroine/cocaine), Opioid use disorder, Bipolar disorder, ETOH use disorder, and HVC (known, untreated) was brought to ED by EMS on 01/22/18 as he was found lying face down on the street by random witnesses who called 911. EMS reported administering 1 dose or 2 mg of Narcan prior to arrival. HPI and ROS were limited due to patient's altered mental status. Pt admitted to overdosing on opioids overnight and mixing several drugs, but was unaware of events while under influence prior to ED presentation. Past medical history is collected from chart review. Also with history of prior elopement. Pt responded to narcan and was placed on narcan drip. Pt was monitored him throughout the day in ICU for airway protection, was taken off Narcan drip approx. 09:00am and had been much more awake and alert as the day went on. Tolerating diet. No signs of resp distress. Able to maintain his own airway. Pt ultimately needs social work and drug rehab however he is not interested at all at this time, was offered referral to [facility] for follow-up after hospital admission since he does not follow with a PCP currently. Pt requested to leave AMA after downgraded from medical floor. He was competent to make his own decisions and was not a candidate to be retrained against his wishes. Pt was educated on risks and benefits of leaving against medical advice and decided to leave the hospital with his own free. Pt was offered rx for abx (Levaquin) by ICU as his CXR showed possible infiltrate, maybe aspiration. Pt was given course of anbx for 5 days. Discharge Exam - Head Exam Head Exam: ATRAUMATIC, NORMAL INSPECTION - Eye Exam Eye Exam: EOMI, Normal appearance, PERRL - ENT Exam ENT Exam: Mucous Membranes Moist - Respiratory Exam Respiratory Exam: Clear to PA & Lateral, UNREMARKABLE - Cardiovascular Exam Cardiovascular Exam: REGULAR RHYTHM, +S1, +S2 - GI/Abdominal Exam GI & Abdominal Exam: Normal Bowel Sounds, Soft, Unremarkable - Extremities Exam Extremities exam: full ROM, normal capillary refill, pedal pulses present - Neurological Exam Neurological exam: Alert, Oriented x3 - Psychiatric Exam Psychiatric exam: Normal Affect, Normal Mood - Skin Skin Exam: Dry, Intact, Warm Discharge Plan - Discharge Medications Prescriptions: Levofloxacin [Levaquin] 750 mg PO DAILY #5 tablet - Follow Up Plan Condition: FAIR Disposition: AGAINST MEDICAL ADVICE <Vikki Robert - Last Filed: 01/22/18 22:10> Provider - Provider Date of Admission: 01/22/18 04:56 Attending physician: Kimi Shepard, DO Hospital Course - Lab Results Lab Results: Most Recent Lab Values WBC 16.3 10^3/ul (4.5-11.0) H D 01/22/18 04:03 RBC 4.81 10^6/uL (3.5-6.1) 01/22/18 04:03 Hgb 14.8 g/dL (14.0-18.0) D 01/22/18 04:03 Hct 44.5 % (42.0-52.0) 01/22/18 04:03 MCV 92.5 fl (80.0-105.0) 01/22/18 04:03 MCH 30.8 pg (25.0-35.0) 01/22/18 04:03 MCHC 33.3 g/dl (31.0-37.0) 01/22/18 04:03 RDW 13.5 % (11.5-14.5) 01/22/18 04:03 Plt Count 265 10^3/uL (120.0-450.0) 01/22/18 04:03 MPV 9.3 fl (7.0-11.0) 01/22/18 04:03 Gran % 39.0 % (50.0-68.0) L 01/22/18 04:03 Lymph % (Auto) 54.2 % (22.0-35.0) H 01/22/18 04:03 [place] % (Auto) 6.0 % (1.0-6.0) 01/22/18 04:03 Eos % (Auto) 0.6 % (1.5-5.0) L 01/22/18 04:03 Baso % (Auto) 0.2 % (0.0-3.0) 01/22/18 04:03 Gran # 6.34 (1.4-6.5) 01/22/18 04:03 Lymph # (Auto) 8.8 (1.2-3.4) H 01/22/18 04:03 [place] # (Auto) 1.0 (0.1-0.6) H 01/22/18 04:03 Eos # (Auto) 0.1 (0.0-0.7) 01/22/18 04:03 Baso # (Auto) 0.03 K/mm3 (0.0-2.0) 01/22/18 04:03 Sodium 143 mmol/L (132-148) 01/22/18 04:03 Potassium 3.3 mmol/L (3.6-5.0) L 01/22/18 04:03 Chloride 104 mmol/L (98-107) 01/22/18 04:03 Carbon Dioxide 23 mmol/L (21-33) 01/22/18 04:03 Anion Gap 20 (10-20) 01/22/18 04:03 BUN 23 mg/dL (7-21) H 01/22/18 04:03 Creatinine 1.2 mg/dl (0.8-1.5) 01/22/18 04:03 Est GFR ( Amer) > 60 01/22/18 04:03 Est GFR (Non-Af Amer) > 60 01/22/18 04:03 POC Glucose (mg/dL) 195 mg/dL (65-110) H 01/22/18 04:14 Random Glucose 208 mg/dL (70-110) H 01/22/18 04:03 Calcium 8.4 mg/dL (8.4-10.5) 01/22/18 04:03 Phosphorus 7.3 mg/dL (2.5-4.5) H 01/22/18 04:03 Magnesium 2.5 mg/dL (1.7-2.2) H 01/22/18 04:03 Total Bilirubin 0.3 mg/dL (0.2-1.3) 01/22/18 04:03 AST 144 U/L (17-59) H D 01/22/18 04:03 ALT 205 U/L (7-56) H 01/22/18 04:03 Alkaline Phosphatase 81 U/L (38-126) 01/22/18 04:03 Total Creatine Kinase 1263 U/L (35-230) H 01/22/18 08:42 CK-MB (CK-2) 7.9 ng/mL (0.0-3.6) H 01/22/18 08:42 CK-MB (CK-2) % 0.6 % (2.5-3.0) L 01/22/18 08:42 Total Protein 7.4 g/dL (5.8-8.3) 01/22/18 04:03 Albumin 4.4 g/dL (3.0-4.8) 01/22/18 04:03 Globulin 3.0 gm/dL 01/22/18 04:03 Albumin/Globulin Ratio 1.5 (1.1-1.8) 01/22/18 04:03 Procalcitonin 0.06 NG/ML (0.19-0.49) L 01/22/18 06:00 Salicylates < 1 mg/dL (2.0-20.0) L 01/22/18 04:03 Acetaminophen < 10.0 ug/ml (10.0-20.0) L 01/22/18 04:03 Alcohol, Quantitative 189 mg/dL (0-10) H 01/22/18 04:03 Attending/Attestation - Attestation I have personally seen and examined this patient.: Yes I have fully participated in the care of the patient.: Yes I have reviewed all pertinent clinical information, including history, physical exam and plan: Yes Notes (Text): 01/22/18 22:09 Patient seen and examined at bedside. Vitals, notes and labs reviewed. Patient decided to sign out AMA despite of all risks explained clearly to him including risk of paralysis, stroke, sepsis and other complications associated with drug use leading upto
--- NOTE | 2018-01-23 05:13 | CARD ---
APPROVED REPORT Date of service: 01/22/2018 EKG Measurement Heart [id number] <Conclusion> Normal sinus rhythm Normal ECG
[2018-01-23] MEDS ORDERED: Multivitamin Therapeutic Tab PO SCH (10:00)
== END 2018-01-22 16:41 | disposition left against medical advice (07) | DRG 918 ==
LOC: ED 03:52 → ERH 04:56 → CCU 06:11
PROVIDERS: ADMIT Hospitalist; ATTEND Hospitalist
DX: T40.1X1A Poisoning by heroin, accidental (unintentional), initial encounter (principal); N17.9 Acute kidney failure, unspecified; M62.82 Rhabdomyolysis; F11.90 Opioid use, unspecified, uncomplicated; F14.90 Cocaine use, unspecified, uncomplicated; B19.20 Unspecified viral hepatitis C without hepatic coma; E87.6 Hypokalemia; R73.9 Hyperglycemia, unspecified; F31.9 Bipolar disorder, unspecified; D72.829 Elevated white blood cell count, unspecified; F10.10 Alcohol abuse, uncomplicated; Y90.6 Blood alcohol level of 120-199 mg/100 ml; Z87.891 Personal history of nicotine dependence

== ENCOUNTER 2018-10-11 11:22 | Emergency (ER) | payer BC, MEDICAID ==
[2018-10-11 11:29] VITALS: RESP 18; TEMP 98.6; BMI 24.3
[2018-10-11 13:07] VITALS: BP 113/75; PULSE 92; O2SAT 99
--- NOTE | 2018-10-11 13:36 | ED PDOC ---
Arrival/HPI - General Chief Complaint: Substance Abuse Time Seen by Provider: 10/11/18 11:26 Historian: Patient - History of Present Illness Narrative History of Present Illness (Text): 10/11/18 11:20 28 year old male, whose past medical history includes IVDA (heroine/cocaine), Opioid use disorder, Bipolar disorder, ETOH use disorder, and HVC (known, untreated), presented to the emergency department accompanied by father after patient overdosed on heroin. Patient injected heroin and felt shaky, so his dad called 911. Patient occasionally does cocaine, but did not today. Patient was not given Narcan by EMS. Patient denies any fevers, chills, chest pain, shortness of breath, abdominal pain, nausea, vomiting, diarrhea, back pain, neck pain, urinary symptoms, headache, dizziness, or any other complaint. Time/Duration: Prior to Arrival Symptom Onset: Gradual Symptom Course: Unchanged Activities at Onset: Light Context: Home Past Medical History - Provider Review Nursing Documentation Reviewed: Yes - Cardiac Hx Hypertension: No - Pulmonary Hx Pneumonia: Yes - Neurological Hx Seizures: No - HEENT Hx HEENT Disorder: No - Renal Hx Renal Disorder: No - Endocrine/Metabolic Hx Endocrine Disorders: No - Hematological/Oncological Other/Comment: ETOH abuse - Integumentary Hx Dermatological Disorder: No - Musculoskeletal/Rheumatological Hx Falls: Yes - Gastrointestinal Hx Gastrointestinal Disorders: No - Genitourinary/Gynecological Hx Sexually Transmitted Diseases: No - Psychiatric Hx Anxiety: Yes Hx Bipolar Disorder: Yes Hx Substance Use: Yes - Anesthesia Hx Anesthesia: No Hx Anesthesia Reactions: No Hx Malignant Hyperthermia: No - Suicidal Assessment Feels Threatened In Home Enviroment: No Family/Social History - Physician Review Nursing Documentation Reviewed: Yes Family/Social History: No Known Family HX Smoking Status: Heavy Smoker > 10 Cigarettes Daily Hx Alcohol Use: Yes Hx Substance Use: Yes Substance used: heroine and cocaine Allergies/Home Meds Allergies/Adverse Reactions: Allergies No Known Allergies Allergy (Verified 08/29/18 00:14) Home Medications: Home Meds Medication Instructions Recorded Confirmed No Known Home Med 08/29/18 08/29/18 Review of Systems - Physician Review All systems were reviewed & negative as marked: Yes - Review of Systems Constitutional: absent: Fevers, Other (chills) Respiratory: absent: SOB Cardiovascular: absent: Chest Pain Gastrointestinal: absent: Diarrhea, Nausea, Vomiting Genitourinary Male: absent: Dysuria, Frequency, Hematuria Musculoskeletal: absent: Back Pain, Neck Pain Neurological: absent: Headache, Dizziness Physical Exam Vital Signs Reviewed: Yes Vital Signs Temp Pulse Resp BP Pulse Ox 10/11/18 13:00 92 H 18 113/75 99 10/11/18 11:28 98.6 F 97 H 18 143/86 96 Temperature: Afebrile Blood Pressure: Normal Pulse: Regular Respiratory Rate: Normal Appearance: Positive for: Well-Appearing, Non-Toxic, Comfortable Pain Distress: None Mental Status: Positive for: Alert and Oriented X 3 - Systems Exam Head: Present: Atraumatic, Normocephalic Pupils: Present: PERRL Extroacular Muscles: Present: EOMI Conjunctiva: Present: Normal Mouth: Present: Moist Mucous Membranes Neck: Present: Normal Range of Motion Respiratory/Chest: Present: Clear to Auscultation, Good Air Exchange. No: Respiratory Distress, Accessory Muscle Use Cardiovascular: Present: Regular Rate and Rhythm, Normal S1, S2. No: Murmurs Abdomen: No: Tenderness, Distention, Peritoneal Signs Back: Present: Normal Inspection Upper Extremity: Present: Other (track lima to the left ac. no signs of infection). No: Cyanosis, Edema Lower Extremity: Present: Normal Inspection. No: Edema Neurological: Present: GCS=15, CN II-XII Intact, Speech Normal Skin: Present: Warm, Dry, Normal Color. No: Rashes Psychiatric: Present: Alert, Oriented x 3, Normal Insight, Normal Concentration Medical Decision Making ED Course and Treatment: 10/11/18 11:20 Impression: 28 year old male presents s/p heroin overdose. Plan: -- Reassess and disposition Prior Visits: Notes and results from previous visits were reviewed. Progress Notes: 10/11/18 13:10 Patient spoke to screener at [facility] who reports there is a bed availab le at this time. Patient will be discharged at this time and will go to [facility] for inpatient detox. - Scribe Statement The provider has reviewed the documentation as recorded by the Niels Pierce Provider Scribe Attestation: All medical record entries made by the Scribnegar were at my direction and personally dictated by me. I have reviewed the chart and agree that the record accurately reflects my personal performance of the history, physical exam, medical decision making, and the department course for this patient. I have also personally directed, reviewed, and agree with the discharge instructions and disposition. Disposition/Present on Arrival - Present on Arrival Any Indicators Present on Arrival: No History of DVT/PE: No History of Uncontrolled Diabetes: No Urinary Catheter: No History of Decub. Ulcer: No History Surgical Site Infection Following: None - Disposition Have Diagnosis and Disposition been Completed?: Yes Diagnosis: Drug abuse Disposition: HOME/ ROUTINE Disposition Time: 12:25 Condition: GOOD Discharge Instructions (ExitCare): Drug Abuse and Drug Addiction (DC), Drug Abuse Treatment Additional Instructions: HILL MCMILLAN, thank you for letting us take care of you today. The emergency medical care you received today was directed at your acute symptoms. If you were prescribed any medication, please fill it and take as directed. It may take several days for your symptoms to resolve. Return to the Emergency Department if your symptoms worsen, do not improve, or if you have any other problems. Please contact your doctor or call one of the physicians/clinics you have been referred to that are listed on the Patient Visit Information form that is included in your discharge packet. Bring any paperwork you were given at discharge with you along with any medications you are taking to your follow up visit. Our treatment cannot replace ongoing medical care by a primary care provider outside of the emergency department. Thank you for allowing the [employer] team to be part of your care today. Follow up with [facility] (formerly [facility]) now for detox. Referrals: [facility] [Outside] - Follow up with primary [facility] [Outside] - Follow up with primary Forms: [employer] (Welsh)
== END 2018-10-11 13:00 | disposition home or self-care (01) ==
LOC: ED 11:22
DX: F19.10 Other psychoactive substance abuse, uncomplicated (principal); F17.210 Nicotine dependence, cigarettes, uncomplicated; F31.9 Bipolar disorder, unspecified